=== PATIENT | female | born 1945 | race Caucasian/White ===

== ENCOUNTER 2021-10-10 12:06 | Inpatient (IN) ==
[2021-10-10] MEDS ORDERED: Succinylcholine 200 mg VIAL 20 mg/ml 10 ml VIAL (200 mg) ONE (12:13)
[2021-10-10] MEDS ORDERED: Rocuronium 50 mg VIAL 10 mg/ml 5 ml VIAL (50 mg) ONE (12:13)
[2021-10-10] MEDS ORDERED: Midazolam 10 mg/10 ml VIAL 1 mg/ml 10 ml VIAL (10 mg) ONE (12:18)
[2021-10-10] MEDS ORDERED: Etomidate 40 mg/20 ml (2 MG/ML) 20 ml VIAL (40 mg) ONE (12:18)
[2021-10-10] MEDS ORDERED: Midazolam 2 mg/2 ml VIAL 1 mg/ml 2 ml VIAL (2 mg) IV SLOW PU ONE (12:30)
[2021-10-10 12:36] LABS: Activated Partial Thrombo Time 44.3 seconds (26.0-38.0); INR 1.52 (0.86-1.15)
[2021-10-10 12:44] LABS: PCO2 Arterial 61 mmHg (35-45); PO2 Arterial 90 mmHg (80-100)
[2021-10-10 13:00] LABS: Albumin 2.9 g/dL (3.2-5.2); Albumin/Globulin Ratio 0.5 (1-3); C Reactive Protein 12.16 mg/L (<8.01); Globulin 6.1 g/dL (2-4); Total Bilirubin 1.9 mg/dL (0.2-1.0); eGFR CKD-EPI 78.9 (>60)
[2021-10-10] MEDS ORDERED: Midazolam 50 MG VIAL IV DRIP 50 ML IV SCH ×2 (13:00→19:00)
[2021-10-10 13:02] LABS: Potassium 5.2 mmol/L (3.5-5.0)
[2021-10-10 13:10] LABS: ABS Lymphocytes 0.8 10^3/ul (1.0-4.8); ABS Monocytes 0.3 10^3/ul (0-0.8); ABS Neutrophils 2.8 10^3/ul (1.5-7.7); Eosinophil % 0.3 %; Hematocrit 34 % (35-47); Hemoglobin 11.1 g/dL (12.0-16.0); Lymphocyte % 20.6 %; Mean Corpuscular HGB Conc 33 g/dL (31-36); Mean Corpuscular Hemoglobin 29 pg (27-31); Mean Corpuscular Volume 87 fL (80-97); Mean Platelet Volume 7.5 fL (7.4-10.4); Platelet Count 114 10^3/uL (150-450); Red Cell Distribution Width 21 % (10-15)
[2021-10-10] MEDS ORDERED: levETIRAcetam IV 1,500 MG in NS 0.9% 100 ml BAG 100 ML IVPB ONE (13:14)
[2021-10-10] MEDS ORDERED: levETIRAcetam 500 MG IVPREMIX 500 MG/100 ML BAG IVPB ONE (13:14)
[2021-10-10] MEDS ORDERED: NS 0.9% 100 ml BAG 100 ML ONE (13:25)
[2021-10-10 13:46] LABS: PCO2 Arterial 65 mmHg (35-45); PO2 Arterial 76 mmHg (80-100)
[2021-10-10 14:10] LABS: High Sensitivity Troponin 1 Hr 5 pg/mL (<15)
[2021-10-10 14:13] LABS: Urine Appearance Clear; Urine Bilirubin Negative (Negative); Urine Blood 2+ (Negative); Urine Color Yellow; Urine Glucose Negative (Negative); Urine Ketones Negative (Negative); Urine Nitrite Negative (Negative); Urine Protein Negative (Negative); Urine Specific Gravity 1.015 (1.002-1.030); Urine Urobilinogen Positive (Negative)
[2021-10-10 14:26] LABS: Urine Bacteria Absent (Absent); Urine Red Blood Cell 3+(>10/hpf) (Absent); Urine White Blood Cell Trace(0-5/hpf) (Absent)
[2021-10-10 14:45] LABS: TSH Ultra Thyroid Stim Horm 1.65 mcIU/mL (0.34-5.60)
[2021-10-10 14:52] LABS: Thyroid Peroxidase Antibodies 1.07 IU/mL (<9)
[2021-10-10 15:40] LABS: Erythrocyte Sed Rate 72 mm/Hr (0-29)
[2021-10-10] MEDS: Pantoprazole VIAL 40 MG VIAL IV SCH (15:51)
[2021-10-10] MEDS ORDERED: cefTRIAXone 2 GM ADDV.VIAL 2 GM in NS 0.9% 100 ml BAG 100 ML IV SCH (16:00)
[2021-10-10 16:25] LABS: Body Fluid WBC 725 /mcL
[2021-10-10] MEDS: Dextrose 50% Syringe 50 ml 25 GM/50 ML SYRINGE IV PUSH PRN ×2 (16:39→22:02)
[2021-10-10] MEDS: Artificial Tear OPHTH.OINT 3.5 GM BOTH EYES SCH ×3 (16:40→20:51)
[2021-10-10] MEDS: Lactulose 30 ml UDC PO SCH ×2 (17:27→20:51)
[2021-10-10 17:36] LABS: Body Fluid Appearance Clear; Body Fluid Band 1 %; Body Fluid Color Yellow; Body Fluid Mono 10 %; Body Fluid Other Cells 46; Body Fluid Total Cells Counted 200
[2021-10-10 17:37] LABS: Body Fluid Source Peritonial Fluid
[2021-10-10 19:20] LABS: Osmolality Serum 293 mOsm/kg (275-295)
[2021-10-10] MEDS: Heparin 5000 UNITS/ML 1 mL VIAL SUBCUT SCH (20:51)
[2021-10-10] MEDS: Chlorhexidine MOUTHWASH 0.12% 15 ML UDC TOPICAL SCH ×2 (20:51→22:28)
[2021-10-10] MEDS ORDERED: D5NS 0.9% 1000 ml BAG 1,000 ML IV SCH (23:00)
[2021-10-11] MEDS ORDERED: Lactated Ringers 500 ml BAG 500 ML IV ONE ×2 (01:15→05:28)
[2021-10-11] MEDS: Artificial Tear OPHTH.OINT 3.5 GM BOTH EYES SCH ×6 (02:16→21:48)
[2021-10-11] MEDS: Heparin 5000 UNITS/ML 1 mL VIAL SUBCUT SCH ×3 (04:56→21:47)
[2021-10-11] MEDS: Chlorhexidine MOUTHWASH 0.12% 15 ML UDC TOPICAL SCH ×6 (04:56→23:35)
[2021-10-11 05:02] LABS: ABS Eosinophils 0.1 10^3/ul (0-0.6); ABS Lymphocytes 1.3 10^3/ul (1.0-4.8); ABS Monocytes 1.1 10^3/ul (0-0.8); ABS Neutrophils 9.5 10^3/ul (1.5-7.7); Eosinophil % 0.6 %; Hematocrit 29 % (35-47); Hemoglobin 9.7 g/dL (12.0-16.0); Lymphocyte % 10.4 %; Mean Corpuscular HGB Conc 33 g/dL (31-36); Mean Corpuscular Hemoglobin 29 pg (27-31); Mean Corpuscular Volume 86 fL (80-97); Mean Platelet Volume 7.6 fL (7.4-10.4); Platelet Count 142 10^3/uL (150-450); Red Blood Count 3.38 10^6 /uL (3.70-4.87); Red Cell Distribution Width 21 % (10-15)
[2021-10-11 05:08] LABS: INR 1.76 (0.86-1.15)
[2021-10-11 05:48] LABS: Albumin 2.2 g/dL (3.2-5.2); Albumin/Globulin Ratio 0.4 (1-3); Calcium 7.5 mg/dL (8.6-10.3); Direct Bilirubin 0.6 mg/dL (0.03-0.18); Globulin 4.9 g/dL (2-4); Magnesium 1.3 mg/dL (1.9-2.7); Potassium 4.4 mmol/L (3.5-5.0); Total Bilirubin 1.6 mg/dL (0.2-1.0); Total Protein 7.1 g/dL (6.4-8.9); eGFR CKD-EPI 45.5 (>60)
[2021-10-11] MEDS ORDERED: Magnesium Sulf 4 GM/100 ML IV 4,000 MG/100 ML BAG IVPB ONE (07:30)
[2021-10-11] MEDS ORDERED: Piperacillin/Tazobac ADVAN 3.375 GM in NS 0.9% 100 ml BAG 100 ML IV ONE (07:49)
[2021-10-11] MEDS ORDERED: Zosyn per Pharmacy NOTE FOLLOW UP SCH (08:00)
[2021-10-11] MEDS: Pantoprazole VIAL 40 MG VIAL IV SCH (09:02)
[2021-10-11] MEDS: Lactulose 30 ml UDC PO SCH ×4 (09:02→21:47)
[2021-10-11] MEDS: Albumin Human 25% 25 GM/100 ML BTL IV SCH ×2 (09:53→12:01)
[2021-10-11] MEDS ORDERED: D5NS 0.9% 1000 ml BAG 1,000 ML IV SCH (10:41)
[2021-10-11 10:55] LABS: Urine Osmo 541 mOsm/kg (150-1150)
[2021-10-11 11:29] LABS: PCO2 Arterial 35 mmHg (35-45); PO2 Arterial 76 mmHg (80-100)
[2021-10-11 12:00] LABS: Urine Creatinine Concentration 165.15 mg/dL
[2021-10-11] MEDS ORDERED: Midazolam 10 mg/10 ml VIAL 1 mg/ml 10 ml VIAL (10 mg) ONE (14:37)
[2021-10-11] MEDS ORDERED: fentaNYL 100 mcg/2 ml 50 MCG/ML VIAL ONE (14:37)
[2021-10-11] MEDS: ZOSYN 3.375 GM Q8H per EXTENDED INFUSION IV SCH ×2 (14:53→21:48)
[2021-10-11 15:53] LABS: ABS Eosinophils 0.1 10^3/ul (0-0.6); ABS Lymphocytes 1.3 10^3/ul (1.0-4.8); ABS Monocytes 1.2 10^3/ul (0-0.8); ABS Neutrophils 7.7 10^3/ul (1.5-7.7); Eosinophil % 0.7 %; Hematocrit 26 % (35-47); Hemoglobin 8.6 g/dL (12.0-16.0); Lymphocyte % 12.4 %; Mean Corpuscular HGB Conc 33 g/dL (31-36); Mean Corpuscular Hemoglobin 29 pg (27-31); Mean Corpuscular Volume 87 fL (80-97); Mean Platelet Volume 7.6 fL (7.4-10.4); Platelet Count 120 10^3/uL (150-450); Red Blood Count 2.99 10^6 /uL (3.70-4.87); Red Cell Distribution Width 21 % (10-15); White Blood Count 10.3 10^3/uL (3.5-10.8)
[2021-10-11 16:24] LABS: Calcium 6.9 mg/dL (8.6-10.3); Magnesium 2.3 mg/dL (1.9-2.7); Potassium 4.2 mmol/L (3.5-5.0); eGFR CKD-EPI 44.7 (>60)
[2021-10-11 17:44] LABS: Ferritin 40.8 ng/mL (11-307)
[2021-10-12] MEDS ORDERED: fentaNYL 100 mcg/2 ml 50 MCG/ML VIAL IV SLOW PU ONE (01:30)
[2021-10-12] MEDS ORDERED: fentaNYL 100 mcg/2 ml 50 MCG/ML VIAL ONE (01:34)
[2021-10-12] MEDS: Lactulose 30 ml UDC PO SCH ×6 (02:27→20:26)
[2021-10-12] MEDS: Artificial Tear OPHTH.OINT 3.5 GM BOTH EYES SCH ×6 (02:27→20:42)
[2021-10-12] MEDS ORDERED: Midazolam 2 mg/2 ml VIAL 1 mg/ml 2 ml VIAL (2 mg) IV SLOW PU ONE (02:30)
[2021-10-12] MEDS: Chlorhexidine MOUTHWASH 0.12% 15 ML UDC TOPICAL SCH ×5 (04:04→20:26)
[2021-10-12 04:34] LABS: ABS Eosinophils 0.1 10^3/ul (0-0.6); ABS Monocytes 0.9 10^3/ul (0-0.8); Eosinophil % 0.7 %; Hematocrit 27 % (35-47); Hemoglobin 8.8 g/dL (12.0-16.0); Lymphocyte % 12.3 %; Mean Corpuscular HGB Conc 33 g/dL (31-36); Mean Corpuscular Hemoglobin 29 pg (27-31); Mean Corpuscular Volume 86 fL (80-97); Mean Platelet Volume 7.7 fL (7.4-10.4); Platelet Count 120 10^3/uL (150-450); Red Blood Count 3.07 10^6 /uL (3.70-4.87); Red Cell Distribution Width 20 % (10-15)
[2021-10-12 05:11] LABS: Albumin 2.5 g/dL (3.2-5.2); Albumin/Globulin Ratio 0.6 (1-3); Calcium 7.5 mg/dL (8.6-10.3); Direct Bilirubin 0.8 mg/dL (0.03-0.18); Globulin 4.3 g/dL (2-4); Magnesium 2.4 mg/dL (1.9-2.7); Phosphorus 2.4 mg/dL (2.5-5.0); Potassium 3.9 mmol/L (3.5-5.0); Total Bilirubin 1.8 mg/dL (0.2-1.0); Total Protein 6.8 g/dL (6.4-8.9); eGFR CKD-EPI 45.1 (>60)
[2021-10-12] MEDS: Propofol 10 mg/ml 100 ML BTL 100 ML ONE ×2 (05:44→06:08)
[2021-10-12] MEDS: Heparin 5000 UNITS/ML 1 mL VIAL SUBCUT SCH ×3 (05:48→20:27)
[2021-10-12] MEDS ORDERED: Propofol 10 mg/ml 100 ML BTL 100 ML IV ONE (06:00)
[2021-10-12] MEDS: ZOSYN 3.375 GM Q8H per EXTENDED INFUSION IV SCH ×3 (06:19→20:41)
[2021-10-12] MEDS: Pantoprazole VIAL 40 MG VIAL IV SCH (08:31)
[2021-10-12] MEDS: Saline FLUSH-CENTRAL 10 ML SYRINGE CENT\\PICC SCH ×2 (10:11→20:27)
[2021-10-12 10:26] LABS: INR 1.9 (0.86-1.15)
[2021-10-12 15:01] LABS: Lactate Dehydrogenase, BF 57 U/L
[2021-10-12 15:08] LABS: Activated Partial Thrombo Time 43.6 seconds (26.0-38.0); INR 1.72 (0.86-1.15)
[2021-10-12] MEDS: Propofol 10 mg/ml 100 ML BTL 100 ML IV SCH (15:37)
[2021-10-12 16:01] LABS: Glucose, BF 52 mg/dL
[2021-10-12 16:04] LABS: Total Protein, BF 1.6 g/dL
[2021-10-12 16:05] LABS: Albumin, BF 0.6 g/dL
[2021-10-13] MEDS: Lactulose 30 ml UDC PO SCH ×6 (00:20→20:17)
[2021-10-13] MEDS: Chlorhexidine MOUTHWASH 0.12% 15 ML UDC TOPICAL SCH ×6 (00:20→20:17)
[2021-10-13] MEDS: Propofol 10 mg/ml 100 ML BTL 100 ML IV SCH ×3 (00:20→19:21)
[2021-10-13] MEDS: Artificial Tear OPHTH.OINT 3.5 GM BOTH EYES SCH ×6 (02:16→20:35)
[2021-10-13] MEDS: Heparin 5000 UNITS/ML 1 mL VIAL SUBCUT SCH ×3 (04:22→20:18)
[2021-10-13] MEDS: ZOSYN 3.375 GM Q8H per EXTENDED INFUSION IV SCH (04:23)
[2021-10-13 04:25] LABS: ABS Eosinophils 0.1 10^3/ul (0-0.6); ABS Lymphocytes 1.2 10^3/ul (1.0-4.8); ABS Monocytes 0.6 10^3/ul (0-0.8); ABS Neutrophils 3.2 10^3/ul (1.5-7.7); Eosinophil % 2.9 %; Hematocrit 25 % (35-47); Hemoglobin 8.3 g/dL (12.0-16.0); Lymphocyte % 23.7 %; Mean Corpuscular HGB Conc 33 g/dL (31-36); Mean Corpuscular Hemoglobin 29 pg (27-31); Mean Corpuscular Volume 86 fL (80-97); Nucleated Red Blood Cells % 0.1; Platelet Count 108 10^3/uL (150-450); Red Blood Count 2.92 10^6 /uL (3.70-4.87); Red Cell Distribution Width 20 % (10-15); White Blood Count 5.2 10^3/uL (3.5-10.8)
[2021-10-13 04:34] LABS: INR 1.77 (0.86-1.15)
[2021-10-13 05:15] LABS: ALT 41 U/L (7-52); AST 71 U/L (13-39); Albumin 2.2 g/dL (3.2-5.2); Albumin/Globulin Ratio 0.6 (1-3); Alkaline Phosphatase 78 U/L (35-149); Blood Urea Nitrogen 14 mg/dL (6-24); CO2 Carbon Dioxide 26 mmol/L (22-32); Calcium 7.4 mg/dL (8.6-10.3); Chloride 111 mmol/L (101-111); Glucose 222 mg/dL (70-100); Magnesium 2.2 mg/dL (1.9-2.7); Phosphorus 1.5 mg/dL (2.5-5.0); Potassium 3.4 mmol/L (3.5-5.0); Sodium 137 mmol/L (135-145); Total Protein 6.2 g/dL (6.4-8.9); eGFR CKD-EPI 64.9 (>60)
[2021-10-13] MEDS: Pantoprazole VIAL 40 MG VIAL IV SCH (08:18)
[2021-10-13] MEDS: Saline FLUSH-CENTRAL 10 ML SYRINGE CENT\\PICC SCH ×2 (08:53→20:18)
[2021-10-13] MEDS: KCL premix 10 MEQ/50 ML x 3 RUNS IV SCH ×4 (08:54→13:09)
[2021-10-13] MEDS ORDERED: KCL 20 MEQ/100 ML IVPREMIX 20 MEQ/100 ML BAG IV SCH (09:00)
[2021-10-13] MEDS ORDERED: Potassium Phosphate IV 15 MMOLE in NS 0.9% 250 ml 250 ML IVPB ONE (09:30)
[2021-10-13 11:16] LABS: PCO2 Arterial 36 mmHg (35-45); PO2 Arterial 80 mmHg (80-100)
[2021-10-13] MEDS ORDERED: Dextrose 50% Syringe 50 ml 25 GM/50 ML SYRINGE IV PUSH PRN (12:19)
[2021-10-13] MEDS ORDERED: fentaNYL 100 mcg/2 ml 50 MCG/ML VIAL ONE (12:19)
[2021-10-13] MEDS: fentaNYL 100 mcg/2 ml 50 MCG/ML VIAL IV SLOW PU ONE ×2 (12:30→13:15)
[2021-10-13] MEDS ORDERED: Furosemide 40 mg/4 ml IV VIAL IV SLOW PU ONE (15:02)
[2021-10-13] MEDS: Insulin GLARGINE 100 un/ml 10 ml VIAL SUBCUT SCH (20:18)
[2021-10-13 20:56] LABS: Calcium 7.5 mg/dL (8.6-10.3); Phosphorus 2.1 mg/dL (2.5-5.0); Potassium 3.8 mmol/L (3.5-5.0); eGFR CKD-EPI 62.5 (>60)
[2021-10-14] MEDS: Lactulose 30 ml UDC PO SCH ×6 (00:14→21:32)
[2021-10-14] MEDS: Chlorhexidine MOUTHWASH 0.12% 15 ML UDC TOPICAL SCH ×7 (00:14→23:52)
[2021-10-14] MEDS: Artificial Tear OPHTH.OINT 3.5 GM BOTH EYES SCH ×6 (00:53→21:33)
[2021-10-14] MEDS: Heparin 5000 UNITS/ML 1 mL VIAL SUBCUT SCH ×3 (04:31→21:34)
[2021-10-14 04:37] LABS: ABS Eosinophils 0.1 10^3/ul (0-0.6); ABS Lymphocytes 1.4 10^3/ul (1.0-4.8); ABS Monocytes 0.6 10^3/ul (0-0.8); ABS Neutrophils 2.3 10^3/ul (1.5-7.7); Eosinophil % 3.3 %; Hematocrit 27 % (35-47); Hemoglobin 8.9 g/dL (12.0-16.0); Lymphocyte % 31.9 %; Mean Corpuscular HGB Conc 33 g/dL (31-36); Mean Corpuscular Hemoglobin 29 pg (27-31); Mean Corpuscular Volume 87 fL (80-97); Mean Platelet Volume 7.5 fL (7.4-10.4); Nucleated Red Blood Cells % 0.1; Platelet Count 126 10^3/uL (150-450); Red Blood Count 3.08 10^6 /uL (3.70-4.87); Red Cell Distribution Width 20 % (10-15); White Blood Count 4.5 10^3/uL (3.5-10.8)
[2021-10-14 04:43] LABS: INR 1.66 (0.86-1.15)
[2021-10-14 05:06] LABS: Albumin 2.2 g/dL (3.2-5.2); Albumin/Globulin Ratio 0.5 (1-3); Calcium 7.8 mg/dL (8.6-10.3); Globulin 4.2 g/dL (2-4); Magnesium 1.9 mg/dL (1.9-2.7); Phosphorus 2.3 mg/dL (2.5-5.0); Potassium 3.7 mmol/L (3.5-5.0); Total Bilirubin 1.2 mg/dL (0.2-1.0); Total Protein 6.4 g/dL (6.4-8.9); eGFR CKD-EPI 64.9 (>60)
[2021-10-14] MEDS: Propofol 10 mg/ml 100 ML BTL 100 ML IV SCH ×3 (06:18→23:18)
[2021-10-14] MEDS ORDERED: Magnesium Sulfate IV 1GM/100ML 1 GM/100 ML BAG IV ONE (07:08)
[2021-10-14] MEDS: Pantoprazole VIAL 40 MG VIAL IV SCH (07:54)
[2021-10-14] MEDS: KCL 20 MEQ/100 ML IVPREMIX 20 MEQ/100 ML BAG IV SCH ×2 (07:59→11:09)
[2021-10-14] MEDS: Saline FLUSH-CENTRAL 10 ML SYRINGE CENT\\PICC SCH ×2 (08:03→21:34)
[2021-10-14] MEDS ORDERED: methylPREDNISolone SOD SUCC 1,000 MG in NS 0.9% 1000 ml BAG 1,000 ML IVPB SCH (17:00)
[2021-10-14] MEDS ORDERED: METHYLPREDNISOLONE IV SCH (18:00)
[2021-10-14] MEDS ORDERED: NS 0.9% IV SCH (18:00)
[2021-10-14] MEDS ORDERED: methylPREDNISolone SOD SUCC 1,000 MG in NS 0.9% 250 ml 250 ML IVPB ONE (19:00)
[2021-10-14] MEDS: Insulin GLARGINE 100 un/ml 10 ml VIAL SUBCUT SCH (21:32)
[2021-10-15] MEDS ORDERED: Furosemide 40 mg/4 ml IV VIAL IV ONE (00:05)
[2021-10-15] MEDS ORDERED: Insulin GLARGINE 100 un/ml 10 ml VIAL SUBCUT SCH ×2 (01:00→21:00)
[2021-10-15] MEDS: Lactulose 30 ml UDC PO SCH ×6 (02:05→21:15)
[2021-10-15] MEDS: Artificial Tear OPHTH.OINT 3.5 GM BOTH EYES SCH ×6 (02:06→22:58)
[2021-10-15] MEDS: Chlorhexidine MOUTHWASH 0.12% 15 ML UDC TOPICAL SCH ×5 (04:39→21:15)
[2021-10-15 05:11] LABS: ABS Lymphocytes 0.5 10^3/ul (1.0-4.8); ABS Neutrophils 2.2 10^3/ul (1.5-7.7); Eosinophil % 0.1 %; Hematocrit 28 % (35-47); Hemoglobin 9.3 g/dL (12.0-16.0); Lymphocyte % 18.5 %; Mean Corpuscular HGB Conc 33 g/dL (31-36); Mean Corpuscular Hemoglobin 29 pg (27-31); Mean Corpuscular Volume 88 fL (80-97); Mean Platelet Volume 7.4 fL (7.4-10.4); Nucleated Red Blood Cells % 0.1; Platelet Count 104 10^3/uL (150-450); Red Blood Count 3.19 10^6 /uL (3.70-4.87); Red Cell Distribution Width 20 % (10-15); White Blood Count 2.7 10^3/uL (3.5-10.8)
[2021-10-15 05:19] LABS: INR 1.58 (0.86-1.15)
[2021-10-15 05:51] LABS: Albumin 2.3 g/dL (3.2-5.2); Albumin/Globulin Ratio 0.5 (1-3); Calcium 7.8 mg/dL (8.6-10.3); Globulin 4.8 g/dL (2-4); Phosphorus 3.3 mg/dL (2.5-5.0); Potassium 4.9 mmol/L (3.5-5.0); Total Bilirubin 1.3 mg/dL (0.2-1.0); Total Protein 7.1 g/dL (6.4-8.9); eGFR CKD-EPI 60.2 (>60)
[2021-10-15] MEDS: Propofol 10 mg/ml 100 ML BTL 100 ML IV SCH ×2 (07:12→14:23)
[2021-10-15] MEDS: methylPREDNISolone SOD SUCC 1,000 MG in NS 0.9% 250 ml 250 ML IVPB SCH (07:59)
[2021-10-15] MEDS: Pantoprazole VIAL 40 MG VIAL IV SCH (08:01)
[2021-10-15] MEDS: Saline FLUSH-CENTRAL 10 ML SYRINGE CENT\\PICC SCH ×2 (08:02→21:18)
[2021-10-15] MEDS ORDERED: Furosemide 20 mg/2 ml IV VIAL IV SLOW PU ONE (09:20)
[2021-10-15 12:39] LABS: Glucose Confirmatory 409 mg/dL (70-100)
[2021-10-15 12:54] LABS: C-ANCA Negative (Negative); P-ANCA Positive (Negative)
[2021-10-15] MEDS ORDERED: Phytonadione IV (Adult) 5 MG in NS 0.9% 50 ML 50 ML IV ONE (16:15)
[2021-10-15 16:32] LABS: Liver/Kidney Microsomes Ab <5.0 U
[2021-10-15 16:33] LABS: Liver/Kidney Microsomes Ab <5.0 U
[2021-10-15 17:07] LABS: Calcium 6.8 mg/dL (8.6-10.3); Magnesium 1.8 mg/dL (1.9-2.7); Potassium 4.3 mmol/L (3.5-5.0); eGFR CKD-EPI 53.1 (>60)
[2021-10-15 17:17] LABS: Albumin 3.2 mg/dL; Albumin/Globulin Ratio 0.19; Gamma Globulin 6.2 mg/dL; Protein,Total, Random Urine 20 mg/dL
[2021-10-15] MEDS ORDERED: Heparin 5000 UNITS/ML 1 mL VIAL SUBCUT ONE (18:05)
[2021-10-15 19:50] LABS: Albumin 2.4 g/dL (3.4-4.7); Gamma Globulin 4.3 g/dL (0.6-1.6); Total Protein(PEP) 8.2 g/dL (6.3 - 7.9)
[2021-10-16] MEDS: Chlorhexidine MOUTHWASH 0.12% 15 ML UDC TOPICAL SCH ×7 (00:49→23:42)
[2021-10-16] MEDS: Propofol 10 mg/ml 100 ML BTL 100 ML IV SCH ×4 (02:15→20:07)
[2021-10-16] MEDS: Lactulose 30 ml UDC PO SCH ×6 (03:00→22:15)
[2021-10-16] MEDS: Artificial Tear OPHTH.OINT 3.5 GM BOTH EYES SCH ×6 (03:00→22:02)
[2021-10-16 04:19] LABS: Hepatitis B Surface Antigen Nonreactive (Nonreactive)
[2021-10-16 04:25] LABS: Hepatitis A Ab IgM Negative (Negative)
[2021-10-16 04:26] LABS: Hepatitis B Core IgM Nonreactive (Nonreactive)
[2021-10-16 04:37] LABS: Hepatitis C Antibody Negative (Negative)
[2021-10-16 06:36] LABS: Hematocrit 27 % (35-47); Mean Corpuscular HGB Conc 33 g/dL (31-36); Mean Corpuscular Hemoglobin 29 pg (27-31); Mean Corpuscular Volume 88 fL (80-97); Mean Platelet Volume 7.8 fL (7.4-10.4); Platelet Count 112 10^3/uL (150-450); Red Blood Count 3.11 10^6 /uL (3.70-4.87); Red Cell Distribution Width 20 % (10-15)
[2021-10-16 06:43] LABS: INR 1.56 (0.86-1.15)
[2021-10-16 06:57] LABS: ABS Lymphocytes 0.7 10^3/ul (1.0-4.8); ABS Monocytes 0.7 10^3/ul (0-0.8); ABS Neutrophils 6.6 10^3/ul (1.5-7.7); Lymphocyte % 8.9 %
[2021-10-16 07:03] LABS: Blood Urea Nitrogen 35 mg/dL (6-24); CO2 Carbon Dioxide 26 mmol/L (22-32); Calcium 8.2 mg/dL (8.6-10.3); Glucose 274 mg/dL (70-100); Magnesium 2.3 mg/dL (1.9-2.7); Phosphorus 4.5 mg/dL (2.5-5.0); Potassium 4.7 mmol/L (3.5-5.0); Sodium 143 mmol/L (135-145); eGFR CKD-EPI 42.6 (>60)
[2021-10-16 07:09] LABS: Chloride 117 mmol/L (101-111)
[2021-10-16] MEDS ORDERED: Phytonadione IV (Adult) 5 MG in NS 0.9% 50 ML 50 ML IV ONE (08:11)
[2021-10-16] MEDS: methylPREDNISolone SOD SUCC 1,000 MG in NS 0.9% 250 ml 250 ML IVPB SCH (08:35)
[2021-10-16] MEDS: Pantoprazole VIAL 40 MG VIAL IV SCH (08:36)
[2021-10-16] MEDS: Saline FLUSH-CENTRAL 10 ML SYRINGE CENT\\PICC SCH ×2 (08:37→22:03)
[2021-10-16] MEDS ORDERED: Insulin GLARGINE 100 un/ml 10 ml VIAL SUBCUT ONE (09:22)
[2021-10-16] MEDS ORDERED: Furosemide 20 mg/2 ml IV VIAL IV SLOW PU ONE (10:55)
[2021-10-16] MEDS ORDERED: Gadoteridol (CONTRAST) 279.3 MG/ML 10 ML IV ONE (13:35)
[2021-10-16 16:29] LABS: Lamotrigine 4.9 mcg/mL (2.5 - 15.0)
[2021-10-16 16:46] LABS: Urine Appearance Cloudy; Urine Bilirubin Negative (Negative); Urine Blood 2+ (Negative); Urine Color Yellow; Urine Glucose Negative (Negative); Urine Ketones Negative (Negative); Urine Nitrite Negative (Negative); Urine Protein Negative (Negative); Urine Urobilinogen Negative (Negative)
[2021-10-16 16:50] LABS: Urine Bacteria Absent (Absent); Urine Red Blood Cell 3+(>10/hpf) (Absent); Urine Squamous Epithelial Cell Present (Absent); Urine White Blood Cell Trace(0-5/hpf) (Absent)
[2021-10-16 17:04] LABS: INR 1.6 (0.86-1.15)
[2021-10-16] MEDS ORDERED: Insulin GLARGINE 100 un/ml 10 ml VIAL SUBCUT SCH ×2 (21:00)
[2021-10-17] MEDS: Artificial Tear OPHTH.OINT 3.5 GM BOTH EYES SCH ×6 (02:15→22:37)
[2021-10-17] MEDS: Lactulose 30 ml UDC PO SCH ×6 (02:15→22:36)
[2021-10-17] MEDS: Chlorhexidine MOUTHWASH 0.12% 15 ML UDC TOPICAL SCH ×5 (03:45→22:37)
[2021-10-17 04:10] LABS: ABS Lymphocytes 0.4 10^3/ul (1.0-4.8); ABS Monocytes 0.3 10^3/ul (0-0.8); ABS Neutrophils 4.6 10^3/ul (1.5-7.7); Hematocrit 25 % (35-47); Hemoglobin 8.3 g/dL (12.0-16.0); Lymphocyte % 8.2 %; Mean Corpuscular HGB Conc 33 g/dL (31-36); Mean Corpuscular Hemoglobin 30 pg (27-31); Mean Corpuscular Volume 89 fL (80-97); Mean Platelet Volume 8.4 fL (7.4-10.4); Nucleated Red Blood Cells % 0.1; Platelet Count 82 10^3/uL (150-450); Red Blood Count 2.81 10^6 /uL (3.70-4.87); Red Cell Distribution Width 21 % (10-15); White Blood Count 5.4 10^3/uL (3.5-10.8)
[2021-10-17 04:11] LABS: INR 1.61 (0.86-1.15)
[2021-10-17 04:28] LABS: Albumin 2.5 g/dL (3.2-5.2); Albumin/Globulin Ratio 0.6 (1-3); Calcium 8.6 mg/dL (8.6-10.3); Globulin 4.1 g/dL (2-4); Magnesium 2.5 mg/dL (1.9-2.7); Phosphorus 4.7 mg/dL (2.5-5.0); Potassium 4.5 mmol/L (3.5-5.0); Total Bilirubin 0.9 mg/dL (0.2-1.0); Total Protein 6.6 g/dL (6.4-8.9); eGFR CKD-EPI 41.9 (>60)
[2021-10-17] MEDS: Propofol 10 mg/ml 100 ML BTL 100 ML IV SCH (06:51)
[2021-10-17] MEDS ORDERED: Insulin NPH 100 units/ml SUBCUT ONE (08:17)
[2021-10-17] MEDS ORDERED: methylPREDNISolone SOD 125 mg 1,000 MG in NS 0.9% 100 ml BAG 100 ML IV SCH (09:00)
[2021-10-17] MEDS: methylPREDNISolone SOD SUCC 1,000 MG in NS 0.9% 250 ml 250 ML IVPB SCH (09:16)
[2021-10-17] MEDS: Pantoprazole VIAL 40 MG VIAL IV SCH (09:29)
[2021-10-17] MEDS: Saline FLUSH-CENTRAL 10 ML SYRINGE CENT\\PICC SCH ×2 (09:29→22:37)
[2021-10-17] MEDS: Heparin 5000 UNITS/ML 1 mL VIAL SUBCUT SCH ×2 (11:53→22:36)
[2021-10-17 14:14] LABS: JO-1 Antibody <0.2 U; Scleroderma Ab <0.2 U
[2021-10-17] MEDS ORDERED: Acetaminophen IV 1 GM/100ML 100 ML IV PRN (15:29)
[2021-10-17 18:48] LABS: JO-1 Antibody <0.2 U; RNP Antibody, IgG <0.2 U; SS-A/Ro Antibody <0.2 U; SS-B/La Antibody <0.2 U; Sm (Smith) IgG Antibody <0.2 U
[2021-10-17] MEDS: Insulin GLARGINE 100 un/ml 10 ml VIAL SUBCUT SCH (22:36)
[2021-10-18] MEDS: Chlorhexidine MOUTHWASH 0.12% 15 ML UDC TOPICAL SCH ×7 (01:04→23:35)
[2021-10-18] MEDS: Lactulose 30 ml UDC PO SCH ×6 (01:04→21:39)
[2021-10-18] MEDS: Artificial Tear OPHTH.OINT 3.5 GM BOTH EYES SCH ×6 (01:05→23:35)
[2021-10-18] MEDS: Metoprolol Tartrate 5 mg VIAL 5 ml VIAL (1 mg/ml) IV PRN ×2 (04:05→16:00)
[2021-10-18 04:29] LABS: ABS Lymphocytes 0.5 10^3/ul (1.0-4.8); ABS Monocytes 0.6 10^3/ul (0-0.8); ABS Neutrophils 5.4 10^3/ul (1.5-7.7); Hematocrit 28 % (35-47); Hemoglobin 9.1 g/dL (12.0-16.0); Mean Corpuscular HGB Conc 32 g/dL (31-36); Mean Corpuscular Hemoglobin 29 pg (27-31); Mean Corpuscular Volume 89 fL (80-97); Mean Platelet Volume 8.2 fL (7.4-10.4); Nucleated Red Blood Cells % 0.1; Platelet Count 81 10^3/uL (150-450); Red Blood Count 3.15 10^6 /uL (3.70-4.87); Red Cell Distribution Width 21 % (10-15); White Blood Count 6.5 10^3/uL (3.5-10.8)
[2021-10-18 04:41] LABS: INR 1.76 (0.86-1.15)
[2021-10-18 04:56] LABS: Albumin 2.7 g/dL (3.2-5.2); Albumin/Globulin Ratio 0.6 (1-3); Calcium 9.2 mg/dL (8.6-10.3); Globulin 4.7 g/dL (2-4); Magnesium 2.9 mg/dL (1.9-2.7); Phosphorus 4.1 mg/dL (2.5-5.0); Potassium 4.4 mmol/L (3.5-5.0); Total Bilirubin 1.4 mg/dL (0.2-1.0); Total Protein 7.4 g/dL (6.4-8.9); eGFR CKD-EPI 36.6 (>60)
[2021-10-18] MEDS: Heparin 5000 UNITS/ML 1 mL VIAL SUBCUT SCH ×3 (05:49→21:39)
[2021-10-18] MEDS ORDERED: Insulin NPH 100 units/ml SUBCUT ONE (07:24)
[2021-10-18] MEDS: Pantoprazole VIAL 40 MG VIAL IV SCH (10:09)
[2021-10-18] MEDS: methylPREDNISolone SOD SUCC 1,000 MG in NS 0.9% 250 ml 250 ML IVPB SCH (10:10)
[2021-10-18] MEDS: Saline FLUSH-CENTRAL 10 ML SYRINGE CENT\\PICC SCH ×2 (10:10→21:46)
[2021-10-18 13:39] LABS: Cryoglobulin Negative %ppt (Negative)
[2021-10-18 14:13] LABS: TB2 Ag minus Nil Result -0.01 IU/mL
[2021-10-18 14:18] LABS: QuantiferonTb Gold Plus Result Indeterminate (Negative)
[2021-10-18] MEDS: Insulin GLARGINE 100 un/ml 10 ml VIAL SUBCUT SCH (21:40)
[2021-10-19] MEDS: Lactulose 30 ml UDC PO SCH ×3 (02:50→10:35)
[2021-10-19] MEDS: Artificial Tear OPHTH.OINT 3.5 GM BOTH EYES SCH ×4 (03:02→15:02)
[2021-10-19] MEDS: Chlorhexidine MOUTHWASH 0.12% 15 ML UDC TOPICAL SCH ×4 (04:56→16:40)
[2021-10-19] MEDS: Heparin 5000 UNITS/ML 1 mL VIAL SUBCUT SCH ×3 (04:57→21:14)
[2021-10-19 05:10] LABS: Hematocrit 28 % (35-47); Hemoglobin 9.1 g/dL (12.0-16.0); Mean Corpuscular HGB Conc 33 g/dL (31-36); Mean Corpuscular Hemoglobin 29 pg (27-31); Mean Corpuscular Volume 90 fL (80-97); Mean Platelet Volume 8.6 fL (7.4-10.4); Platelet Count 62 10^3/uL (150-450); Red Blood Count 3.11 10^6 /uL (3.70-4.87); Red Cell Distribution Width 21 % (10-15)
[2021-10-19 05:17] LABS: INR 1.96 (0.86-1.15)
[2021-10-19 05:39] LABS: Magnesium 2.8 mg/dL (1.9-2.7); Phosphorus 2.9 mg/dL (2.5-5.0)
[2021-10-19] MEDS ORDERED: methylPREDNISolone SOD SUCC 40 mg/ml 1 ml VIAL IV SCH (06:00)
[2021-10-19 07:35] LABS: Anisocytosis 2+; Hypochromasia 1+; Microcytosis 1+
[2021-10-19 07:37] LABS: ABS Lymphocytes 0.5 10^3/ul (1.0-4.8); ABS Monocytes 0.4 10^3/ul (0-0.8); Lymphocyte % 10.8 %; Nucleated Red Blood Cells % 0.2
[2021-10-19] MEDS: Pantoprazole VIAL 40 MG VIAL IV SCH ×2 (08:36→21:14)
[2021-10-19] MEDS: Saline FLUSH-CENTRAL 10 ML SYRINGE CENT\\PICC SCH ×2 (08:36→21:26)
[2021-10-19] MEDS ORDERED: Pantoprazole VIAL 40 MG VIAL IV SCH (09:00)
[2021-10-19 09:18] LABS: Albumin 2.6 g/dL (3.2-5.2); Albumin/Globulin Ratio 0.6 (1-3); Calcium 9.2 mg/dL (8.6-10.3); Globulin 4.7 g/dL (2-4); Total Bilirubin 1.8 mg/dL (0.2-1.0); Total Protein 7.3 g/dL (6.4-8.9); eGFR CKD-EPI 56.8 (>60)
[2021-10-19 09:36] LABS: PCO2 Arterial 42 mmHg (35-45); PO2 Arterial 95 mmHg (80-100)
[2021-10-19] MEDS: Insulin GLARGINE 100 un/ml 10 ml VIAL SUBCUT SCH (21:14)
[2021-10-20] MEDS: Metoprolol Tartrate 5 mg VIAL 5 ml VIAL (1 mg/ml) IV PRN (04:58)
[2021-10-20] MEDS: Heparin 5000 UNITS/ML 1 mL VIAL SUBCUT SCH ×3 (05:33→22:12)
[2021-10-20 05:35] LABS: ABS Lymphocytes 0.9 10^3/ul (1.0-4.8); ABS Monocytes 0.8 10^3/ul (0-0.8); ABS Neutrophils 4.6 10^3/ul (1.5-7.7); Hematocrit 28 % (35-47); Hemoglobin 9.1 g/dL (12.0-16.0); Lymphocyte % 13.9 %; Mean Corpuscular HGB Conc 33 g/dL (31-36); Mean Corpuscular Hemoglobin 29 pg (27-31); Mean Corpuscular Volume 90 fL (80-97); Mean Platelet Volume 8.7 fL (7.4-10.4); Nucleated Red Blood Cells % 0.2; Platelet Count 67 10^3/uL (150-450); Red Blood Count 3.12 10^6 /uL (3.70-4.87); Red Cell Distribution Width 21 % (10-15); White Blood Count 6.3 10^3/uL (3.5-10.8)
[2021-10-20 05:38] LABS: INR 2.04 (0.86-1.15)
[2021-10-20 06:27] LABS: Albumin 2.5 g/dL (3.2-5.2); Albumin/Globulin Ratio 0.6 (1-3); Globulin 4.3 g/dL (2-4); Magnesium 2.6 mg/dL (1.9-2.7); Potassium 4.1 mmol/L (3.5-5.0); Total Bilirubin 1.7 mg/dL (0.2-1.0); Total Protein 6.8 g/dL (6.4-8.9); eGFR CKD-EPI 55.5 (>60)
[2021-10-20] MEDS ORDERED: methylPREDNISolone SOD SUCC 40 mg/ml 1 ml VIAL IV SCH ×2 (09:00)
[2021-10-20] MEDS: Saline FLUSH-CENTRAL 10 ML SYRINGE CENT\\PICC SCH ×2 (10:33→22:12)
[2021-10-20] MEDS: Insulin GLARGINE 100 un/ml 10 ml VIAL SUBCUT SCH (22:10)
[2021-10-20] MEDS: Lactulose 30 ml UDC NG TUBE SCH (22:12)
[2021-10-21 04:43] LABS: ABS Lymphocytes 1.2 10^3/ul (1.0-4.8); ABS Monocytes 0.9 10^3/ul (0-0.8); ABS Neutrophils 6.1 10^3/ul (1.5-7.7); Eosinophil % 0.3 %; Hematocrit 29 % (35-47); Hemoglobin 9.3 g/dL (12.0-16.0); Lymphocyte % 14.4 %; Mean Corpuscular HGB Conc 32 g/dL (31-36); Mean Corpuscular Hemoglobin 30 pg (27-31); Mean Corpuscular Volume 92 fL (80-97); Mean Platelet Volume 9.1 fL (7.4-10.4); Nucleated Red Blood Cells % 0.2; Platelet Count 64 10^3/uL (150-450); Red Blood Count 3.12 10^6 /uL (3.70-4.87); Red Cell Distribution Width 21 % (10-15); White Blood Count 8.2 10^3/uL (3.5-10.8)
[2021-10-21 05:09] LABS: Calcium 8.9 mg/dL (8.6-10.3); Potassium 4.6 mmol/L (3.5-5.0); eGFR CKD-EPI 59.5 (>60)
[2021-10-21] MEDS: Heparin 5000 UNITS/ML 1 mL VIAL SUBCUT SCH ×3 (05:44→21:07)
[2021-10-21 07:35] LABS: Magnesium 2.6 mg/dL (1.9-2.7)
[2021-10-21] MEDS: Lactulose 30 ml UDC NG TUBE SCH ×2 (10:16→21:02)
[2021-10-21] MEDS: Saline FLUSH-CENTRAL 10 ML SYRINGE CENT\\PICC SCH ×2 (10:35→21:08)
[2021-10-21] MEDS: Pantoprazole VIAL 40 MG VIAL IV SCH (20:35)
[2021-10-21] MEDS: Insulin GLARGINE 100 un/ml 10 ml VIAL SUBCUT SCH (21:07)
[2021-10-22 03:24] LABS: ABS Eosinophils 0.2 10^3/ul (0-0.6); ABS Lymphocytes 1.3 10^3/ul (1.0-4.8); ABS Neutrophils 8.3 10^3/ul (1.5-7.7); Eosinophil % 1.7 %; Hematocrit 29 % (35-47); Hemoglobin 9.5 g/dL (12.0-16.0); Lymphocyte % 12.2 %; Mean Corpuscular HGB Conc 32 g/dL (31-36); Mean Corpuscular Hemoglobin 30 pg (27-31); Mean Corpuscular Volume 93 fL (80-97); Mean Platelet Volume 9.5 fL (7.4-10.4); Nucleated Red Blood Cells % 0.1; Platelet Count 66 10^3/uL (150-450); Red Blood Count 3.18 10^6 /uL (3.70-4.87); Red Cell Distribution Width 21 % (10-15); White Blood Count 10.8 10^3/uL (3.5-10.8)
[2021-10-22 03:27] LABS: INR 1.75 (0.86-1.15)
[2021-10-22 03:48] LABS: ALT 47 U/L (7-52); AST 59 U/L (13-39); Albumin 2.5 g/dL (3.2-5.2); Albumin/Globulin Ratio 0.6 (1-3); Alkaline Phosphatase 79 U/L (35-149); Blood Urea Nitrogen 55 mg/dL (6-24); CO2 Carbon Dioxide 29 mmol/L (22-32); Calcium 8.8 mg/dL (8.6-10.3); Glucose 195 mg/dL (70-100); Magnesium 2.5 mg/dL (1.9-2.7); Sodium 143 mmol/L (135-145); Total Protein 6.5 g/dL (6.4-8.9); eGFR CKD-EPI 64.9 (>60)
[2021-10-22 03:51] LABS: Chloride 114 mmol/L (101-111)
[2021-10-22] MEDS: Heparin 5000 UNITS/ML 1 mL VIAL SUBCUT SCH ×3 (06:54→22:32)
[2021-10-22] MEDS: Lactulose 30 ml UDC NG TUBE SCH ×2 (09:31→21:08)
[2021-10-22] MEDS: Saline FLUSH-CENTRAL 10 ML SYRINGE CENT\\PICC SCH ×2 (09:31→21:07)
[2021-10-22 09:52] LABS: Case Number CR-22-21023
[2021-10-22 13:57] LABS: TB1 Ag minus Nil Result 0.01 IU/mL; TB2 Ag minus Nil Result 0.01 IU/mL
[2021-10-22 14:02] LABS: QuantiferonTb Gold Plus Result Indeterminate (Negative)
[2021-10-22] MEDS ORDERED: Furosemide 40 mg/4 ml IV VIAL IV SLOW PU ONE (18:56)
[2021-10-22] MEDS: Insulin GLARGINE 100 un/ml 10 ml VIAL SUBCUT SCH (22:31)
[2021-10-23 05:32] LABS: ABS Eosinophils 0.3 10^3/ul (0-0.6); ABS Lymphocytes 1.4 10^3/ul (1.0-4.8); ABS Monocytes 1.1 10^3/ul (0-0.8); ABS Neutrophils 10.1 10^3/ul (1.5-7.7); Eosinophil % 2.6 %; Hematocrit 28 % (35-47); Hemoglobin 9.2 g/dL (12.0-16.0); Lymphocyte % 10.9 %; Mean Corpuscular HGB Conc 34 g/dL (31-36); Mean Corpuscular Hemoglobin 31 pg (27-31); Mean Corpuscular Volume 91 fL (80-97); Mean Platelet Volume 9.4 fL (7.4-10.4); Nucleated Red Blood Cells % 0.1; Platelet Count 67 10^3/uL (150-450); Red Blood Count 3.02 10^6 /uL (3.70-4.87); Red Cell Distribution Width 21 % (10-15)
[2021-10-23 06:19] LABS: Calcium 8.9 mg/dL (8.6-10.3); Magnesium 2.2 mg/dL (1.9-2.7); Potassium 4.7 mmol/L (3.5-5.0); eGFR CKD-EPI 60.2 (>60)
[2021-10-23] MEDS: Heparin 5000 UNITS/ML 1 mL VIAL SUBCUT SCH ×2 (07:38→15:27)
[2021-10-23] MEDS: Lactulose 30 ml UDC NG TUBE SCH (10:16)
[2021-10-23] MEDS: Saline FLUSH-CENTRAL 10 ML SYRINGE CENT\\PICC SCH (11:02)
[2021-10-23] MEDS: cefTRIAXone 2 gm/50 mL D5W 2 GM/50 ML BAG IV SCH (15:30)
[2021-10-23 15:53] LABS: Body Fluid WBC 250 /mcL
[2021-10-23 18:30] LABS: Body Fluid WBC 214 /mcL
[2021-10-23 18:59] LABS: Body Fluid Source Pleural Fluid
[2021-10-23 19:00] LABS: Body Fluid Appearance Cloudy; Body Fluid Color Yellow
[2021-10-23 20:00] LABS: Body Fluid Appearance Clear; Body Fluid Color Yellow; Body Fluid Source Peritonial Fluid
[2021-10-23 20:07] LABS: Body Fluid Mono 3 %; Body Fluid Other Cells 61; Body Fluid Total Cells Counted 200
[2021-10-23 20:17] LABS: Body Fluid Mono 6 %; Body Fluid Other Cells 3; Body Fluid Total Cells Counted 200
[2021-10-24] MEDS: Lactulose 30 ml UDC NG TUBE SCH ×3 (00:18→21:50)
[2021-10-24] MEDS: Heparin 5000 UNITS/ML 1 mL VIAL SUBCUT SCH ×4 (00:19→21:50)
[2021-10-24] MEDS: Saline FLUSH-CENTRAL 10 ML SYRINGE CENT\\PICC SCH ×3 (00:19→22:03)
[2021-10-24] MEDS: Insulin GLARGINE 100 un/ml 10 ml VIAL SUBCUT SCH ×2 (00:30→21:51)
[2021-10-24 06:02] LABS: ABS Eosinophils 0.2 10^3/ul (0-0.6); ABS Lymphocytes 1.3 10^3/ul (1.0-4.8); ABS Monocytes 1.5 10^3/ul (0-0.8); ABS Neutrophils 10.8 10^3/ul (1.5-7.7); Eosinophil % 1.8 %; Hematocrit 29 % (35-47); Hemoglobin 9.4 g/dL (12.0-16.0); Lymphocyte % 9.2 %; Mean Corpuscular HGB Conc 32 g/dL (31-36); Mean Corpuscular Hemoglobin 30 pg (27-31); Mean Corpuscular Volume 92 fL (80-97); Mean Platelet Volume 9.9 fL (7.4-10.4); Nucleated Red Blood Cells % 0.1; Platelet Count 73 10^3/uL (150-450); Red Blood Count 3.18 10^6 /uL (3.70-4.87); Red Cell Distribution Width 21 % (10-15); White Blood Count 13.9 10^3/uL (3.5-10.8)
[2021-10-24 06:15] LABS: Calcium 8.9 mg/dL (8.6-10.3); Magnesium 2.1 mg/dL (1.9-2.7); Phosphorus 2.8 mg/dL (2.5-5.0); eGFR CKD-EPI 63.3 (>60)
[2021-10-24] MEDS ORDERED: Lactulose 30 ml UDC NG TUBE SCH (09:58)
[2021-10-24] MEDS ORDERED: Insulin GLARGINE 100 un/ml 10 ml VIAL SUBCUT SCH (10:00)
[2021-10-24] MEDS: Lansoprazole SUSP ORALSYR 3 MG/ML PO SCH (10:20)
[2021-10-24] MEDS: Furosemide 20 mg/2 ml IV VIAL IV SLOW PU SCH (11:26)
[2021-10-24 13:04] LABS: Urine Appearance Cloudy; Urine Bilirubin Negative (Negative); Urine Blood Negative (Negative); Urine Color Amber; Urine Glucose Negative (Negative); Urine Ketones Negative (Negative); Urine Nitrite Negative (Negative); Urine Protein Negative (Negative); Urine Specific Gravity 1.029 (1.002-1.030); Urine Urobilinogen Negative (Negative)
[2021-10-24] MEDS: cefTRIAXone 2 gm/50 mL D5W 2 GM/50 ML BAG IV SCH (14:06)
[2021-10-24] MEDS ORDERED: Albumin Human 25% 25 GM/100 ML BTL IV ONE ×2 (20:55→20:58)
[2021-10-25] MEDS: Heparin 5000 UNITS/ML 1 mL VIAL SUBCUT SCH ×3 (06:52→20:32)
[2021-10-25] MEDS: Furosemide 20 mg/2 ml IV VIAL IV SLOW PU SCH (08:18)
[2021-10-25] MEDS: Saline FLUSH-CENTRAL 10 ML SYRINGE CENT\\PICC SCH ×2 (08:20→20:39)
[2021-10-25] MEDS ORDERED: Furosemide 20 mg/2 ml IV VIAL IV SCH (09:00)
[2021-10-25] MEDS: Insulin GLARGINE 100 un/ml 10 ml VIAL SUBCUT SCH ×2 (09:54→21:36)
[2021-10-25] MEDS: Lansoprazole SUSP ORALSYR 3 MG/ML PO SCH (09:55)
[2021-10-25] MEDS: Lactulose 30 ml UDC NG TUBE SCH ×3 (11:09→19:24)
[2021-10-25] MEDS: cefTRIAXone 2 gm/50 mL D5W 2 GM/50 ML BAG IV SCH (13:36)
[2021-10-25 15:22] LABS: Albumin, BF 0.3 g/dL; Fluid Type, Albumin PERITONEAL; Lactate Dehydrogenase, BF 43 U/L
[2021-10-25 15:24] LABS: Lactate Dehydrogenase, BF 64 U/L
[2021-10-25 15:36] LABS: Fluid Type, Protein, Total PERITONEAL; Total Protein, BF 0.7 g/dL
[2021-10-25 16:50] LABS: ABS Eosinophils 0.1 10^3/ul (0-0.6); ABS Lymphocytes 0.6 10^3/ul (1.0-4.8); ABS Monocytes 0.4 10^3/ul (0-0.8); ABS Neutrophils 8.2 10^3/ul (1.5-7.7); Eosinophil % 0.6 %; Hematocrit 30 % (35-47); Hemoglobin 9.8 g/dL (12.0-16.0); Lymphocyte % 6.8 %; Mean Corpuscular HGB Conc 33 g/dL (31-36); Mean Corpuscular Hemoglobin 30 pg (27-31); Mean Corpuscular Volume 93 fL (80-97); Mean Platelet Volume 10.3 fL (7.4-10.4); Nucleated Red Blood Cells % 0.1; Platelet Count 78 10^3/uL (150-450); Red Blood Count 3.23 10^6 /uL (3.70-4.87); Red Cell Distribution Width 22 % (10-15); White Blood Count 9.3 10^3/uL (3.5-10.8)
[2021-10-25 16:53] LABS: INR 1.56 (0.86-1.15)
[2021-10-25 17:05] LABS: Albumin 2.6 g/dL (3.2-5.2); Albumin/Globulin Ratio 0.7 (1-3); Calcium 9.2 mg/dL (8.6-10.3); Globulin 3.8 g/dL (2-4); Potassium 5.1 mmol/L (3.5-5.0); Total Bilirubin 1.1 mg/dL (0.2-1.0); Total Protein 6.4 g/dL (6.4-8.9); eGFR CKD-EPI 65.7 (>60)
[2021-10-26 04:34] LABS: ABS Eosinophils 0.2 10^3/ul (0-0.6); ABS Monocytes 0.8 10^3/ul (0-0.8); Eosinophil % 2.3 %; Hematocrit 29 % (35-47); Hemoglobin 9.4 g/dL (12.0-16.0); Lymphocyte % 11.3 %; Mean Corpuscular HGB Conc 32 g/dL (31-36); Mean Corpuscular Hemoglobin 30 pg (27-31); Mean Corpuscular Volume 92 fL (80-97); Mean Platelet Volume 9.4 fL (7.4-10.4); Nucleated Red Blood Cells % 0.1; Platelet Count 75 10^3/uL (150-450); Red Blood Count 3.15 10^6 /uL (3.70-4.87); Red Cell Distribution Width 22 % (10-15); White Blood Count 9.1 10^3/uL (3.5-10.8)
[2021-10-26 04:46] LABS: ALT 31 U/L (7-52); AST 31 U/L (13-39); Albumin 2.4 g/dL (3.2-5.2); Albumin/Globulin Ratio 0.6 (1-3); Alkaline Phosphatase 88 U/L (35-149); Blood Urea Nitrogen 46 mg/dL (6-24); CO2 Carbon Dioxide 31 mmol/L (22-32); Calcium 9.3 mg/dL (8.6-10.3); Chloride 109 mmol/L (101-111); Globulin 3.7 g/dL (2-4); Glucose 134 mg/dL (70-100); Potassium 4.5 mmol/L (3.5-5.0); Sodium 140 mmol/L (135-145); Total Protein 6.1 g/dL (6.4-8.9); eGFR CKD-EPI 60.9 (>60)
[2021-10-26] MEDS: Heparin 5000 UNITS/ML 1 mL VIAL SUBCUT SCH ×3 (05:33→20:26)
[2021-10-26 09:51] LABS: 6Methylmercaptopurine Riboside 6.63 nmol/mL/h (5.04-9.57)
[2021-10-26] MEDS: Furosemide 20 mg/2 ml IV VIAL IV SLOW PU SCH (10:32)
[2021-10-26] MEDS: Lactulose 30 ml UDC NG TUBE SCH ×3 (10:33→20:25)
[2021-10-26] MEDS: Saline FLUSH-CENTRAL 10 ML SYRINGE CENT\\PICC SCH ×2 (10:36→20:42)
[2021-10-26] MEDS: Insulin GLARGINE 100 un/ml 10 ml VIAL SUBCUT SCH ×2 (10:37→20:26)
[2021-10-26] MEDS: Lansoprazole SUSP ORALSYR 3 MG/ML PO SCH (10:39)
[2021-10-26] MEDS: cefTRIAXone 2 gm/50 mL D5W 2 GM/50 ML BAG IV SCH (14:10)
[2021-10-26] MEDS: Albumin Human 25% 25 GM/100 ML BTL IV SCH (18:00)
[2021-10-27] MEDS: Heparin 5000 UNITS/ML 1 mL VIAL SUBCUT SCH ×3 (04:00→22:55)
[2021-10-27 04:07] LABS: ABS Eosinophils 0.1 10^3/ul (0-0.6); ABS Lymphocytes 0.8 10^3/ul (1.0-4.8); ABS Monocytes 0.6 10^3/ul (0-0.8); ABS Neutrophils 4.9 10^3/ul (1.5-7.7); Eosinophil % 1.6 %; Hematocrit 27 % (35-47); Hemoglobin 8.7 g/dL (12.0-16.0); Lymphocyte % 12.3 %; Mean Corpuscular HGB Conc 32 g/dL (31-36); Mean Corpuscular Hemoglobin 30 pg (27-31); Mean Corpuscular Volume 92 fL (80-97); Mean Platelet Volume 9.7 fL (7.4-10.4); Nucleated Red Blood Cells % 0.1; Platelet Count 73 10^3/uL (150-450); Red Blood Count 2.96 10^6 /uL (3.70-4.87); Red Cell Distribution Width 21 % (10-15); White Blood Count 6.4 10^3/uL (3.5-10.8)
[2021-10-27 04:51] LABS: Calcium 8.9 mg/dL (8.6-10.3); Potassium 4.6 mmol/L (3.5-5.0)
[2021-10-27 04:56] LABS: eGFR CKD-EPI 60.2 (>60)
[2021-10-27] MEDS: Lactulose 30 ml UDC NG TUBE SCH ×3 (09:00→22:55)
[2021-10-27] MEDS: Furosemide 20 mg/2 ml IV VIAL IV SLOW PU SCH (09:09)
[2021-10-27] MEDS: Albumin Human 25% 25 GM/100 ML BTL IV SCH (09:09)
[2021-10-27] MEDS: Saline FLUSH-CENTRAL 10 ML SYRINGE CENT\\PICC SCH ×2 (09:09→23:26)
[2021-10-27] MEDS: Lansoprazole SUSP ORALSYR 3 MG/ML PO SCH (12:52)
[2021-10-27] MEDS: Insulin GLARGINE 100 un/ml 10 ml VIAL SUBCUT SCH ×2 (14:56→23:25)
[2021-10-28 03:36] LABS: ABS Lymphocytes 0.7 10^3/ul (1.0-4.8); ABS Monocytes 0.3 10^3/ul (0-0.8); ABS Neutrophils 4.2 10^3/ul (1.5-7.7); Eosinophil % 0.4 %; Hematocrit 26 % (35-47); Hemoglobin 8.2 g/dL (12.0-16.0); Lymphocyte % 13.3 %; Mean Corpuscular HGB Conc 32 g/dL (31-36); Mean Corpuscular Hemoglobin 30 pg (27-31); Mean Corpuscular Volume 92 fL (80-97); Mean Platelet Volume 9.6 fL (7.4-10.4); Nucleated Red Blood Cells % 0.1; Platelet Count 71 10^3/uL (150-450); Red Blood Count 2.79 10^6 /uL (3.70-4.87); Red Cell Distribution Width 21 % (10-15); White Blood Count 5.3 10^3/uL (3.5-10.8)
[2021-10-28 03:38] LABS: Albumin 2.6 g/dL (3.2-5.2); INR 1.69 (0.86-1.15); Potassium 4.4 mmol/L (3.5-5.0)
[2021-10-28 03:44] LABS: eGFR CKD-EPI 53.1 (>60)
[2021-10-28] MEDS: Heparin 5000 UNITS/ML 1 mL VIAL SUBCUT SCH ×3 (06:30→22:04)
[2021-10-28] MEDS: Albumin Human 25% 25 GM/100 ML BTL IV SCH ×2 (10:42→21:53)
[2021-10-28] MEDS: Saline FLUSH-CENTRAL 10 ML SYRINGE CENT\\PICC SCH ×2 (10:43→22:04)
[2021-10-28] MEDS: Lansoprazole SUSP ORALSYR 3 MG/ML PO SCH (10:43)
[2021-10-28] MEDS: Lactulose 30 ml UDC NG TUBE SCH ×3 (10:43→21:53)
[2021-10-28] MEDS: Furosemide 20 mg/2 ml IV VIAL IV SLOW PU SCH (10:44)
[2021-10-28] MEDS: Insulin GLARGINE 100 un/ml 10 ml VIAL SUBCUT SCH ×2 (11:09→21:50)
[2021-10-28 15:51] LABS: Urine Appearance Clear; Urine Bilirubin Negative (Negative); Urine Blood 2+ (Negative); Urine Color Yellow; Urine Glucose Negative (Negative); Urine Ketones Negative (Negative); Urine Nitrite Negative (Negative); Urine Protein Negative (Negative); Urine Specific Gravity 1.013 (1.002-1.030); Urine Urobilinogen Negative (Negative)
[2021-10-28 16:35] LABS: Urine Bacteria 1+ (Absent); Urine Red Blood Cell 3+(>10/hpf) (Absent); Urine White Blood Cell 2+(11-20/hpf) (Absent)
[2021-10-28] MEDS ORDERED: Furosemide 20 mg/2 ml IV VIAL IV SLOW PU ONE (18:28)
[2021-10-29 05:02] LABS: ABS Monocytes 0.4 10^3/ul (0-0.8); ABS Neutrophils 3.8 10^3/ul (1.5-7.7); Eosinophil % 0.9 %; Hematocrit 25 % (35-47); Hemoglobin 8.1 g/dL (12.0-16.0); Mean Corpuscular HGB Conc 33 g/dL (31-36); Mean Corpuscular Hemoglobin 30 pg (27-31); Mean Corpuscular Volume 92 fL (80-97); Mean Platelet Volume 9.3 fL (7.4-10.4); Nucleated Red Blood Cells % 0.1; Platelet Count 68 10^3/uL (150-450); Red Blood Count 2.72 10^6 /uL (3.70-4.87); Red Cell Distribution Width 20 % (10-15); White Blood Count 5.2 10^3/uL (3.5-10.8)
[2021-10-29 05:15] LABS: Albumin 2.9 g/dL (3.2-5.2); Albumin/Globulin Ratio 1.1 (1-3); Calcium 9.2 mg/dL (8.6-10.3); Globulin 2.6 g/dL (2-4); Potassium 4.3 mmol/L (3.5-5.0); Total Bilirubin 1.2 mg/dL (0.2-1.0); Total Protein 5.5 g/dL (6.4-8.9); eGFR CKD-EPI 54.8 (>60)
[2021-10-29] MEDS: Heparin 5000 UNITS/ML 1 mL VIAL SUBCUT SCH ×3 (06:13→22:19)
[2021-10-29] MEDS: Albumin Human 25% 25 GM/100 ML BTL IV SCH ×2 (11:13→21:59)
[2021-10-29] MEDS: Lansoprazole SUSP ORALSYR 3 MG/ML PO SCH (11:17)
[2021-10-29] MEDS: Furosemide 40 mg/4 ml IV VIAL IV SLOW PU SCH (11:17)
[2021-10-29] MEDS: Insulin GLARGINE 100 un/ml 10 ml VIAL SUBCUT SCH ×2 (11:57→23:59)
[2021-10-29] MEDS: Lactulose 30 ml UDC NG TUBE SCH ×2 (11:58→16:33)
[2021-10-29] MEDS: Saline FLUSH-CENTRAL 10 ML SYRINGE CENT\\PICC SCH ×2 (12:16→22:19)
[2021-10-29 22:56] LABS: Glucose Confirmatory 422 mg/dL (70-100)
[2021-10-30 03:15] LABS: Glucose Confirmatory 439 mg/dL (70-100)
[2021-10-30] MEDS: Heparin 5000 UNITS/ML 1 mL VIAL SUBCUT SCH ×3 (05:49→23:11)
[2021-10-30 06:13] LABS: ABS Eosinophils 0.1 10^3/ul (0-0.6); ABS Lymphocytes 1.1 10^3/ul (1.0-4.8); ABS Monocytes 0.6 10^3/ul (0-0.8); ABS Neutrophils 4.9 10^3/ul (1.5-7.7); Eosinophil % 1.6 %; Hematocrit 27 % (35-47); Hemoglobin 8.6 g/dL (12.0-16.0); Lymphocyte % 16.2 %; Mean Corpuscular HGB Conc 33 g/dL (31-36); Mean Corpuscular Hemoglobin 30 pg (27-31); Mean Corpuscular Volume 91 fL (80-97); Nucleated Red Blood Cells % 0.1; Platelet Count 76 10^3/uL (150-450); Red Blood Count 2.92 10^6 /uL (3.70-4.87); Red Cell Distribution Width 20 % (10-15); White Blood Count 6.7 10^3/uL (3.5-10.8)
[2021-10-30 06:17] LABS: INR 1.71 (0.86-1.15)
[2021-10-30 06:25] LABS: Albumin 3.1 g/dL (3.2-5.2); Albumin/Globulin Ratio 1.1 (1-3); Calcium 9.8 mg/dL (8.6-10.3); Globulin 2.9 g/dL (2-4); Potassium 4.4 mmol/L (3.5-5.0); Total Bilirubin 1.3 mg/dL (0.2-1.0); eGFR CKD-EPI 56.1 (>60)
[2021-10-30] MEDS: Insulin GLARGINE 100 un/ml 10 ml VIAL SUBCUT SCH ×2 (09:00→23:12)
[2021-10-30] MEDS: Furosemide 40 mg/4 ml IV VIAL IV SLOW PU SCH (09:00)
[2021-10-30] MEDS: Saline FLUSH-CENTRAL 10 ML SYRINGE CENT\\PICC SCH ×2 (09:05→23:12)
[2021-10-30] MEDS: Lansoprazole SUSP ORALSYR 3 MG/ML PO SCH (09:12)
[2021-10-30] MEDS: Albumin Human 25% 25 GM/100 ML BTL IV SCH ×2 (09:41→22:28)
[2021-10-30] MEDS ORDERED: Dextrose 50% Syringe 50 ml 25 GM/50 ML SYRINGE IV PUSH PRN ×2 (21:16→22:46)
[2021-10-30] MEDS: Lactulose 30 ml UDC PO SCH (22:40)
[2021-10-31] MEDS: Heparin 5000 UNITS/ML 1 mL VIAL SUBCUT SCH ×3 (04:44→22:18)
[2021-10-31] MEDS ORDERED: fentaNYL 100 mcg/2 ml 50 MCG/ML VIAL ONE (08:46)
[2021-10-31] MEDS: Lansoprazole SUSP ORALSYR 3 MG/ML PO SCH (10:54)
[2021-10-31] MEDS: Lactulose 30 ml UDC PO SCH ×3 (10:54→21:54)
[2021-10-31] MEDS: Insulin GLARGINE 100 un/ml 10 ml VIAL SUBCUT SCH ×2 (10:54→22:18)
[2021-10-31] MEDS: Saline FLUSH-CENTRAL 10 ML SYRINGE CENT\\PICC SCH ×2 (11:02→22:19)
[2021-10-31] MEDS: Albumin Human 25% 25 GM/100 ML BTL IV SCH ×2 (11:03→22:14)
[2021-10-31 12:44] LABS: ABS Eosinophils 0.1 10^3/ul (0-0.6); ABS Lymphocytes 0.9 10^3/ul (1.0-4.8); ABS Monocytes 0.3 10^3/ul (0-0.8); ABS Neutrophils 3.5 10^3/ul (1.5-7.7); Eosinophil % 1.3 %; Hematocrit 25 % (35-47); Hemoglobin 8.2 g/dL (12.0-16.0); Lymphocyte % 19.3 %; Mean Corpuscular HGB Conc 33 g/dL (31-36); Mean Corpuscular Hemoglobin 30 pg (27-31); Mean Corpuscular Volume 91 fL (80-97); Mean Platelet Volume 9.1 fL (7.4-10.4); Nucleated Red Blood Cells % 0.1; Platelet Count 67 10^3/uL (150-450); Red Blood Count 2.79 10^6 /uL (3.70-4.87); Red Cell Distribution Width 20 % (10-15); White Blood Count 4.9 10^3/uL (3.5-10.8)
[2021-10-31 13:11] LABS: Albumin 3.6 g/dL (3.2-5.2); Blood Urea Nitrogen 34 mg/dL (6-24); CO2 Carbon Dioxide 30 mmol/L (22-32); Calcium 9.4 mg/dL (8.6-10.3); Chloride 98 mmol/L (101-111); Glucose 291 mg/dL (70-100); Sodium 128 mmol/L (135-145); eGFR CKD-EPI 59.5 (>60)
[2021-10-31 13:12] LABS: Potassium 5.4 mmol/L (3.5-5.0)
[2021-10-31] MEDS ORDERED: Insulin GLARGINE 100 un/ml 10 ml VIAL SUBCUT ONE (14:30)
[2021-10-31 15:56] LABS: ALT 21 U/L (7-52); AST 19 U/L (13-39)
[2021-11-01] MEDS: Heparin 5000 UNITS/ML 1 mL VIAL SUBCUT SCH ×5 (00:12→18:15)
[2021-11-01 05:15] LABS: ABS Eosinophils 0.1 10^3/ul (0-0.6); ABS Lymphocytes 0.9 10^3/ul (1.0-4.8); ABS Monocytes 0.4 10^3/ul (0-0.8); ABS Neutrophils 3.7 10^3/ul (1.5-7.7); Hematocrit 24 % (35-47); Hemoglobin 7.9 g/dL (12.0-16.0); Lymphocyte % 18.3 %; Mean Corpuscular HGB Conc 33 g/dL (31-36); Mean Corpuscular Hemoglobin 30 pg (27-31); Mean Corpuscular Volume 90 fL (80-97); Mean Platelet Volume 8.7 fL (7.4-10.4); Platelet Count 51 10^3/uL (150-450); Red Blood Count 2.63 10^6 /uL (3.70-4.87); Red Cell Distribution Width 20 % (10-15); White Blood Count 5.2 10^3/uL (3.5-10.8)
[2021-11-01 05:25] LABS: Albumin 3.4 g/dL (3.2-5.2); Albumin/Globulin Ratio 1.6 (1-3); Calcium 9.3 mg/dL (8.6-10.3); Direct Bilirubin 0.3 mg/dL (0.03-0.18); Globulin 2.1 g/dL (2-4); Magnesium 1.8 mg/dL (1.9-2.7); Total Bilirubin 1.3 mg/dL (0.2-1.0); Total Protein 5.5 g/dL (6.4-8.9); eGFR CKD-EPI 64.1 (>60)
[2021-11-01 05:31] LABS: Potassium 5.1 mmol/L (3.5-5.0)
[2021-11-01] MEDS ORDERED: Magnesium Sulfate 2 gm BAG 2 GM/50 ML BAG IVPB ONE (05:56)
[2021-11-01] MEDS: Lactulose 30 ml UDC PO SCH ×2 (10:56→12:20)
[2021-11-01] MEDS: Insulin GLARGINE 100 un/ml 10 ml VIAL SUBCUT SCH ×2 (11:14→21:03)
[2021-11-01] MEDS: Lansoprazole SUSP ORALSYR 3 MG/ML PO SCH (11:18)
[2021-11-01] MEDS: Saline FLUSH-CENTRAL 10 ML SYRINGE CENT\\PICC SCH ×2 (11:18→21:04)
[2021-11-01] MEDS: Albumin Human 25% 25 GM/100 ML BTL IV SCH (13:09)
[2021-11-02] MEDS: Heparin 5000 UNITS/ML 1 mL VIAL SUBCUT SCH ×3 (00:53→17:23)
[2021-11-02 05:56] LABS: ABS Eosinophils 0.1 10^3/ul (0-0.6); ABS Lymphocytes 1.2 10^3/ul (1.0-4.8); ABS Monocytes 0.6 10^3/ul (0-0.8); ABS Neutrophils 7.2 10^3/ul (1.5-7.7); Eosinophil % 0.7 %; Hematocrit 29 % (35-47); Hemoglobin 9.5 g/dL (12.0-16.0); Lymphocyte % 12.7 %; Mean Corpuscular HGB Conc 33 g/dL (31-36); Mean Corpuscular Hemoglobin 29 pg (27-31); Mean Corpuscular Volume 90 fL (80-97); Mean Platelet Volume 9.1 fL (7.4-10.4); Platelet Count 74 10^3/uL (150-450); Red Blood Count 3.21 10^6 /uL (3.70-4.87); Red Cell Distribution Width 19 % (10-15); White Blood Count 9.1 10^3/uL (3.5-10.8)
[2021-11-02 06:23] LABS: Albumin 3.6 g/dL (3.2-5.2); Albumin/Globulin Ratio 1.4 (1-3); Calcium 9.6 mg/dL (8.6-10.3); Globulin 2.5 g/dL (2-4); Potassium 4.3 mmol/L (3.5-5.0); Total Protein 6.1 g/dL (6.4-8.9); eGFR CKD-EPI 65.7 (>60)
[2021-11-02 06:47] LABS: Direct Bilirubin 0.7 mg/dL (0.03-0.18); Indirect Bilirubin 1.3 mg/dL (0.3-1.0)
[2021-11-02] MEDS: Lactulose 30 ml UDC PO SCH ×3 (09:04→17:18)
[2021-11-02] MEDS: Saline FLUSH-CENTRAL 10 ML SYRINGE CENT\\PICC SCH ×2 (09:07→20:35)
[2021-11-02] MEDS: Insulin GLARGINE 100 un/ml 10 ml VIAL SUBCUT SCH (09:08)
[2021-11-02] MEDS: Lansoprazole SUSP ORALSYR 3 MG/ML PO SCH (09:21)
[2021-11-02] MEDS: Zinc Oxide 16% PASTE (Butt Paste) 30 gm TUBE TOPICAL SCH (20:33)
[2021-11-02] MEDS: Albumin Human 25% 25 GM/100 ML BTL IV SCH (20:33)
[2021-11-02] MEDS ORDERED: Insulin GLARGINE 100 un/ml 10 ml VIAL SUBCUT SCH ×3 (21:00)
[2021-11-03 06:09] LABS: ABS Lymphocytes 0.9 10^3/ul (1.0-4.8); ABS Monocytes 0.6 10^3/ul (0-0.8); ABS Neutrophils 6.6 10^3/ul (1.5-7.7); Eosinophil % 0.3 %; Hematocrit 27 % (35-47); Hemoglobin 8.8 g/dL (12.0-16.0); Lymphocyte % 10.8 %; Mean Corpuscular HGB Conc 33 g/dL (31-36); Mean Corpuscular Hemoglobin 29 pg (27-31); Mean Corpuscular Volume 90 fL (80-97); Mean Platelet Volume 10.3 fL (7.4-10.4); Platelet Count 73 10^3/uL (150-450); Red Blood Count 3.02 10^6 /uL (3.70-4.87); Red Cell Distribution Width 19 % (10-15); White Blood Count 8.1 10^3/uL (3.5-10.8)
[2021-11-03 06:56] LABS: Albumin 3.8 g/dL (3.2-5.2); Albumin/Globulin Ratio 1.5 (1-3); Calcium 9.6 mg/dL (8.6-10.3); Direct Bilirubin 0.7 mg/dL (0.03-0.18); Globulin 2.5 g/dL (2-4); Indirect Bilirubin 1.3 mg/dL (0.3-1.0); Potassium 4.7 mmol/L (3.5-5.0); Total Protein 6.3 g/dL (6.4-8.9)
[2021-11-03] MEDS: Heparin 5000 UNITS/ML 1 mL VIAL SUBCUT SCH ×3 (08:38→17:51)
[2021-11-03] MEDS: Lactulose 30 ml UDC PO SCH ×3 (08:40→17:51)
[2021-11-03] MEDS: Albumin Human 25% 25 GM/100 ML BTL IV SCH ×2 (08:41→21:53)
[2021-11-03] MEDS: Saline FLUSH-CENTRAL 10 ML SYRINGE CENT\\PICC SCH ×2 (08:41→20:45)
[2021-11-03] MEDS: Zinc Oxide 16% PASTE (Butt Paste) 30 gm TUBE TOPICAL SCH ×2 (08:43→20:51)
[2021-11-03] MEDS: Lansoprazole SUSP ORALSYR 3 MG/ML PO SCH (08:44)
[2021-11-03] MEDS ORDERED: Insulin GLARGINE 100 un/ml 10 ml VIAL SUBCUT SCH ×3 (09:00)
[2021-11-03 16:10] LABS: Anti-EJ Ab Negative (Negative); Anti-Ku Ab Negative (Negative); Anti-MDA-5 Ab (CADM-140) <20 Units (<20); Anti-MI-2-Ab Negative (Negative); Anti-OJ Ab Negative (Negative); Anti-PL-12 Ab Negative (Negative); Anti-PL-7 Ab Negative (Negative); Anti-SAE1 Ab, IgG <20 Units (<20); Anti-SRP Ab Negative (Negative); Anti-TIF 1gamma Ab <20 Units (<20); Anti-U2 RNP Ab Negative (Negative); Anti-U3 RNP (Fibrillarin) Negative (Negative)
[2021-11-03 17:18] LABS: Calcium 9.4 mg/dL (8.6-10.3); eGFR CKD-EPI 26.2 (>60)
[2021-11-03 17:21] LABS: Potassium 5.1 mmol/L (3.5-5.0)
[2021-11-03] MEDS: Insulin GLARGINE 100 un/ml 10 ml VIAL SUBCUT SCH (20:49)
[2021-11-04] MEDS: Heparin 5000 UNITS/ML 1 mL VIAL SUBCUT SCH ×3 (00:06→17:08)
[2021-11-04 05:16] LABS: Hematocrit 25 % (35-47); Hemoglobin 7.9 g/dL (12.0-16.0); Mean Corpuscular HGB Conc 32 g/dL (31-36); Mean Corpuscular Hemoglobin 29 pg (27-31); Mean Corpuscular Volume 91 fL (80-97); Mean Platelet Volume 10.1 fL (7.4-10.4); Platelet Count 65 10^3/uL (150-450); Red Blood Count 2.71 10^6 /uL (3.70-4.87); Red Cell Distribution Width 20 % (10-15); White Blood Count 7.8 10^3/uL (3.5-10.8)
[2021-11-04 05:45] LABS: Albumin/Globulin Ratio 1.7 (1-3); Calcium 9.4 mg/dL (8.6-10.3); Direct Bilirubin 0.7 mg/dL (0.03-0.18); Globulin 2.3 g/dL (2-4); Indirect Bilirubin 1.5 mg/dL (0.3-1.0); Potassium 4.5 mmol/L (3.5-5.0); Total Bilirubin 2.2 mg/dL (0.2-1.0); Total Protein 6.3 g/dL (6.4-8.9); eGFR CKD-EPI 22.7 (>60)
[2021-11-04] MEDS: Zinc Oxide 16% PASTE (Butt Paste) 30 gm TUBE TOPICAL SCH ×2 (09:32→21:33)
[2021-11-04] MEDS: Insulin GLARGINE 100 un/ml 10 ml VIAL SUBCUT SCH ×2 (09:34→21:35)
[2021-11-04] MEDS: Albumin Human 25% 25 GM/100 ML BTL IV SCH ×2 (09:34→21:35)
[2021-11-04] MEDS: Saline FLUSH-CENTRAL 10 ML SYRINGE CENT\\PICC SCH ×2 (09:35→21:54)
[2021-11-04] MEDS: Lansoprazole SUSP ORALSYR 3 MG/ML PO SCH (11:24)
[2021-11-04] MEDS ORDERED: Furosemide 40 mg/4 ml IV VIAL IV SLOW PU ONE (12:37)
[2021-11-04 19:04] LABS: Calcium 9.5 mg/dL (8.6-10.3); eGFR CKD-EPI 18.7 (>60)
[2021-11-04 19:09] LABS: Potassium 5.1 mmol/L (3.5-5.0)
[2021-11-05] MEDS: Heparin 5000 UNITS/ML 1 mL VIAL SUBCUT SCH ×2 (00:33→07:14)
[2021-11-05 05:43] LABS: ABS Lymphocytes 1.1 10^3/ul (1.0-4.8); ABS Monocytes 0.5 10^3/ul (0-0.8); ABS Neutrophils 4.7 10^3/ul (1.5-7.7); Eosinophil % 0.2 %; Hematocrit 21 % (35-47); Hemoglobin 6.8 g/dL (12.0-16.0); Lymphocyte % 17.3 %; Mean Corpuscular HGB Conc 32 g/dL (31-36); Mean Corpuscular Hemoglobin 30 pg (27-31); Mean Corpuscular Volume 91 fL (80-97); Mean Platelet Volume 8.9 fL (7.4-10.4); Nucleated Red Blood Cells % 0.1; Platelet Count 46 10^3/uL (150-450); Red Blood Count 2.31 10^6 /uL (3.70-4.87); Red Cell Distribution Width 19 % (10-15); White Blood Count 6.3 10^3/uL (3.5-10.8)
[2021-11-05 05:48] LABS: INR 1.97 (0.86-1.15)
[2021-11-05 06:14] LABS: Albumin 3.6 g/dL (3.2-5.2); Albumin/Globulin Ratio 1.9 (1-3); Globulin 1.9 g/dL (2-4); Potassium 4.2 mmol/L (3.5-5.0); Total Bilirubin 1.6 mg/dL (0.2-1.0); Total Protein 5.5 g/dL (6.4-8.9); eGFR CKD-EPI 28.1 (>60)
[2021-11-05] MEDS: Albumin Human 25% 25 GM/100 ML BTL IV SCH ×2 (08:15→21:07)
[2021-11-05] MEDS: Insulin GLARGINE 100 un/ml 10 ml VIAL SUBCUT SCH ×2 (08:20→21:25)
[2021-11-05] MEDS: Lansoprazole SUSP ORALSYR 3 MG/ML PO SCH (08:20)
[2021-11-05] MEDS: Zinc Oxide 16% PASTE (Butt Paste) 30 gm TUBE TOPICAL SCH ×2 (08:24→21:26)
[2021-11-05] MEDS: Saline FLUSH-CENTRAL 10 ML SYRINGE CENT\\PICC SCH ×2 (08:24→21:13)
[2021-11-05] MEDS ORDERED: Furosemide 40 mg/4 ml IV VIAL IV SLOW PU SCH (09:00)
[2021-11-05 17:12] LABS: Glucose Confirmatory 420 mg/dL (70-100)
[2021-11-05] MEDS ORDERED: Dextrose 50% Syringe 50 ml 25 GM/50 ML SYRINGE IV PUSH PRN (21:07)
[2021-11-06 05:21] LABS: ABS Eosinophils 0.1 10^3/ul (0-0.6); ABS Lymphocytes 1.4 10^3/ul (1.0-4.8); ABS Monocytes 0.5 10^3/ul (0-0.8); ABS Neutrophils 3.5 10^3/ul (1.5-7.7); Eosinophil % 1.3 %; Hematocrit 25 % (35-47); Hemoglobin 8.1 g/dL (12.0-16.0); Lymphocyte % 25.9 %; Mean Corpuscular HGB Conc 33 g/dL (31-36); Mean Corpuscular Hemoglobin 29 pg (27-31); Mean Corpuscular Volume 90 fL (80-97); Mean Platelet Volume 8.3 fL (7.4-10.4); Platelet Count 48 10^3/uL (150-450); Red Blood Count 2.75 10^6 /uL (3.70-4.87); Red Cell Distribution Width 18 % (10-15); White Blood Count 5.5 10^3/uL (3.5-10.8)
[2021-11-06 05:24] LABS: INR 1.9 (0.86-1.15)
[2021-11-06 05:58] LABS: Albumin 3.7 g/dL (3.2-5.2); Albumin/Globulin Ratio 2.1 (1-3); Calcium 8.9 mg/dL (8.6-10.3); Globulin 1.8 g/dL (2-4); Potassium 4.1 mmol/L (3.5-5.0); Total Protein 5.5 g/dL (6.4-8.9); eGFR CKD-EPI 49.8 (>60)
[2021-11-06] MEDS: Albumin Human 25% 25 GM/100 ML BTL IV SCH (09:24)
[2021-11-06] MEDS: Lansoprazole SUSP ORALSYR 3 MG/ML PO SCH (09:25)
[2021-11-06] MEDS: Insulin GLARGINE 100 un/ml 10 ml VIAL SUBCUT SCH ×2 (09:25→20:52)
[2021-11-06] MEDS: Zinc Oxide 16% PASTE (Butt Paste) 30 gm TUBE TOPICAL SCH ×2 (10:15→20:54)
[2021-11-06] MEDS: Saline FLUSH-CENTRAL 10 ML SYRINGE CENT\\PICC SCH ×2 (11:40→20:54)
[2021-11-07 06:24] LABS: INR 1.84 (0.86-1.15)
[2021-11-07 06:39] LABS: Albumin 3.7 g/dL (3.2-5.2); Calcium 9.2 mg/dL (8.6-10.3); Potassium 4.2 mmol/L (3.5-5.0); Total Bilirubin 1.7 mg/dL (0.2-1.0)
[2021-11-07 06:45] LABS: Albumin/Globulin Ratio 1.8 (1-3); Globulin 2.1 g/dL (2-4); Total Protein 5.8 g/dL (6.4-8.9); eGFR CKD-EPI 62.5 (>60)
[2021-11-07 06:58] LABS: ABS Lymphocytes 1.4 10^3/ul (1.0-4.8); ABS Monocytes 0.4 10^3/ul (0-0.8); ABS Neutrophils 3.6 10^3/ul (1.5-7.7); Eosinophil % 0.9 %; Hematocrit 26 % (35-47); Hemoglobin 8.7 g/dL (12.0-16.0); Lymphocyte % 25.4 %; Mean Corpuscular HGB Conc 33 g/dL (31-36); Mean Corpuscular Hemoglobin 30 pg (27-31); Mean Corpuscular Volume 90 fL (80-97); Mean Platelet Volume 8.5 fL (7.4-10.4); Platelet Count 56 10^3/uL (150-450); Red Blood Count 2.93 10^6 /uL (3.70-4.87); Red Cell Distribution Width 18 % (10-15); White Blood Count 5.4 10^3/uL (3.5-10.8)
[2021-11-07] MEDS: Insulin GLARGINE 100 un/ml 10 ml VIAL SUBCUT SCH ×2 (08:49→20:55)
[2021-11-07] MEDS: Lansoprazole SUSP ORALSYR 3 MG/ML PO SCH (09:09)
[2021-11-07] MEDS: Saline FLUSH-CENTRAL 10 ML SYRINGE CENT\\PICC SCH ×2 (09:24→20:56)
[2021-11-07] MEDS: Zinc Oxide 16% PASTE (Butt Paste) 30 gm TUBE TOPICAL SCH ×2 (10:39→20:56)
[2021-11-07 20:10] LABS: Glucose Confirmatory 437 mg/dL (70-100)
[2021-11-08 05:32] LABS: ABS Eosinophils 0.1 10^3/ul (0-0.6); ABS Monocytes 0.3 10^3/ul (0-0.8); Eosinophil % 1.4 %; Hematocrit 25 % (35-47); Hemoglobin 8.4 g/dL (12.0-16.0); Mean Corpuscular HGB Conc 33 g/dL (31-36); Mean Corpuscular Hemoglobin 30 pg (27-31); Mean Corpuscular Volume 90 fL (80-97); Mean Platelet Volume 8.4 fL (7.4-10.4); Platelet Count 54 10^3/uL (150-450); Red Blood Count 2.83 10^6 /uL (3.70-4.87); Red Cell Distribution Width 18 % (10-15); White Blood Count 4.4 10^3/uL (3.5-10.8)
[2021-11-08 05:34] LABS: INR 1.8 (0.86-1.15)
[2021-11-08 06:05] LABS: Albumin 3.5 g/dL (3.2-5.2); Albumin/Globulin Ratio 1.6 (1-3); Calcium 8.6 mg/dL (8.6-10.3); Globulin 2.2 g/dL (2-4); Magnesium 1.6 mg/dL (1.9-2.7); Potassium 4.6 mmol/L (3.5-5.0); Total Bilirubin 1.3 mg/dL (0.2-1.0); Total Protein 5.7 g/dL (6.4-8.9); eGFR CKD-EPI 57.4 (>60)
[2021-11-08] MEDS: Insulin GLARGINE 100 un/ml 10 ml VIAL SUBCUT SCH ×2 (08:18→21:22)
[2021-11-08] MEDS ORDERED: Magnesium Sulfate 2 gm BAG 2 GM/50 ML BAG IVPB ONE (08:21)
[2021-11-08] MEDS: Saline FLUSH-CENTRAL 10 ML SYRINGE CENT\\PICC SCH ×2 (10:08→21:23)
[2021-11-08] MEDS: Lansoprazole SUSP ORALSYR 3 MG/ML PO SCH (10:20)
[2021-11-08] MEDS: Zinc Oxide 16% PASTE (Butt Paste) 30 gm TUBE TOPICAL SCH ×2 (10:24→21:22)
[2021-11-09 05:38] LABS: INR 1.77 (0.86-1.15)
[2021-11-09 05:39] LABS: ABS Basophils 0.1 10^3/ul (0-0.2); ABS Eosinophils 0.1 10^3/ul (0-0.6); ABS Lymphocytes 1.7 10^3/ul (1.0-4.8); ABS Monocytes 0.5 10^3/ul (0-0.8); ABS Neutrophils 3.2 10^3/ul (1.5-7.7); Eosinophil % 2.7 %; Hematocrit 27 % (35-47); Hemoglobin 9.2 g/dL (12.0-16.0); Lymphocyte % 30.4 %; Mean Corpuscular HGB Conc 34 g/dL (31-36); Mean Corpuscular Hemoglobin 31 pg (27-31); Mean Corpuscular Volume 90 fL (80-97); Mean Platelet Volume 7.7 fL (7.4-10.4); Nucleated Red Blood Cells % 0.1; Platelet Count 70 10^3/uL (150-450); Red Blood Count 3.02 10^6 /uL (3.70-4.87); Red Cell Distribution Width 18 % (10-15); White Blood Count 5.5 10^3/uL (3.5-10.8)
[2021-11-09 05:59] LABS: Albumin 3.5 g/dL (3.2-5.2); Albumin/Globulin Ratio 1.4 (1-3); Calcium 8.9 mg/dL (8.6-10.3); Globulin 2.5 g/dL (2-4); Potassium 4.5 mmol/L (3.5-5.0); Total Bilirubin 1.4 mg/dL (0.2-1.0); eGFR CKD-EPI 54.2 (>60)
[2021-11-09] MEDS ORDERED: Insulin GLARGINE 100 un/ml 10 ml VIAL SUBCUT SCH (09:00)
[2021-11-09] MEDS: Zinc Oxide 16% PASTE (Butt Paste) 30 gm TUBE TOPICAL SCH ×2 (09:18→21:17)
[2021-11-09] MEDS: Saline FLUSH-CENTRAL 10 ML SYRINGE CENT\\PICC SCH ×2 (09:22→21:17)
[2021-11-09] MEDS: Lansoprazole SUSP ORALSYR 3 MG/ML PO SCH (09:23)
[2021-11-10 06:49] LABS: ABS Eosinophils 0.1 10^3/ul (0-0.6); ABS Lymphocytes 1.1 10^3/ul (1.0-4.8); ABS Monocytes 0.6 10^3/ul (0-0.8); ABS Neutrophils 6.3 10^3/ul (1.5-7.7); Eosinophil % 1.1 %; Hematocrit 31 % (35-47); Hemoglobin 10.1 g/dL (12.0-16.0); Lymphocyte % 13.9 %; Mean Corpuscular HGB Conc 33 g/dL (31-36); Mean Corpuscular Hemoglobin 30 pg (27-31); Mean Corpuscular Volume 91 fL (80-97); Mean Platelet Volume 7.7 fL (7.4-10.4); Platelet Count 92 10^3/uL (150-450); Red Blood Count 3.41 10^6 /uL (3.70-4.87); Red Cell Distribution Width 18 % (10-15); White Blood Count 8.2 10^3/uL (3.5-10.8)
[2021-11-10 06:53] LABS: INR 1.67 (0.86-1.15)
[2021-11-10 07:01] LABS: Albumin 3.9 g/dL (3.2-5.2); Albumin/Globulin Ratio 1.4 (1-3); Calcium 9.3 mg/dL (8.6-10.3); Globulin 2.8 g/dL (2-4); Magnesium 1.6 mg/dL (1.9-2.7); Potassium 4.8 mmol/L (3.5-5.0); Total Bilirubin 1.5 mg/dL (0.2-1.0); Total Protein 6.7 g/dL (6.4-8.9); eGFR CKD-EPI 45.1 (>60)
[2021-11-10] MEDS ORDERED: Magnesium Sulfate 2 gm BAG 2 GM/50 ML BAG IVPB ONE (07:55)
[2021-11-10] MEDS: Insulin GLARGINE 100 un/ml 10 ml VIAL SUBCUT SCH (09:17)
[2021-11-10] MEDS: Zinc Oxide 16% PASTE (Butt Paste) 30 gm TUBE TOPICAL SCH ×2 (09:20→20:41)
[2021-11-10] MEDS: Saline FLUSH-CENTRAL 10 ML SYRINGE CENT\\PICC SCH ×2 (09:21→20:41)
[2021-11-10] MEDS: Lansoprazole SUSP ORALSYR 3 MG/ML PO SCH (09:25)
[2021-11-11 06:07] LABS: ABS Eosinophils 0.1 10^3/ul (0-0.6); ABS Lymphocytes 1.1 10^3/ul (1.0-4.8); ABS Monocytes 0.8 10^3/ul (0-0.8); ABS Neutrophils 7.3 10^3/ul (1.5-7.7); Eosinophil % 0.6 %; Hematocrit 31 % (35-47); Lymphocyte % 12.1 %; Mean Corpuscular HGB Conc 33 g/dL (31-36); Mean Corpuscular Hemoglobin 30 pg (27-31); Mean Corpuscular Volume 90 fL (80-97); Mean Platelet Volume 8.1 fL (7.4-10.4); Platelet Count 96 10^3/uL (150-450); Red Blood Count 3.41 10^6 /uL (3.70-4.87); Red Cell Distribution Width 18 % (10-15); White Blood Count 9.3 10^3/uL (3.5-10.8)
[2021-11-11 06:13] LABS: INR 1.74 (0.86-1.15)
[2021-11-11 06:42] LABS: Albumin 3.7 g/dL (3.2-5.2); Albumin/Globulin Ratio 1.2 (1-3); Calcium 9.4 mg/dL (8.6-10.3); Magnesium 2.1 mg/dL (1.9-2.7); Total Bilirubin 1.9 mg/dL (0.2-1.0); Total Protein 6.7 g/dL (6.4-8.9); eGFR CKD-EPI 34.4 (>60)
[2021-11-11 06:43] LABS: Potassium 5.1 mmol/L (3.5-5.0)
[2021-11-11] MEDS: Insulin GLARGINE 100 un/ml 10 ml VIAL SUBCUT SCH (09:00)
[2021-11-11] MEDS: Lansoprazole SUSP ORALSYR 3 MG/ML PO SCH (09:03)
[2021-11-11] MEDS: Saline FLUSH-CENTRAL 10 ML SYRINGE CENT\\PICC SCH ×2 (09:03→23:05)
[2021-11-11] MEDS: Zinc Oxide 16% PASTE (Butt Paste) 30 gm TUBE TOPICAL SCH ×2 (09:04→23:05)
[2021-11-12 05:27] LABS: ABS Lymphocytes 0.9 10^3/ul (1.0-4.8); ABS Monocytes 0.9 10^3/ul (0-0.8); ABS Neutrophils 8.3 10^3/ul (1.5-7.7); Eosinophil % 0.5 %; Hematocrit 28 % (35-47); Hemoglobin 9.6 g/dL (12.0-16.0); Lymphocyte % 8.6 %; Mean Corpuscular HGB Conc 34 g/dL (31-36); Mean Corpuscular Hemoglobin 30 pg (27-31); Mean Corpuscular Volume 89 fL (80-97); Mean Platelet Volume 8.6 fL (7.4-10.4); Platelet Count 112 10^3/uL (150-450); Red Blood Count 3.17 10^6 /uL (3.70-4.87); Red Cell Distribution Width 18 % (10-15); White Blood Count 10.2 10^3/uL (3.5-10.8)
[2021-11-12 06:19] LABS: Albumin 3.4 g/dL (3.2-5.2); Albumin/Globulin Ratio 1.2 (1-3); Calcium 9.1 mg/dL (8.6-10.3); Globulin 2.9 g/dL (2-4); Magnesium 2.3 mg/dL (1.9-2.7); Total Bilirubin 1.7 mg/dL (0.2-1.0); Total Protein 6.3 g/dL (6.4-8.9); eGFR CKD-EPI 15.1 (>60)
[2021-11-12 06:21] LABS: Potassium 5.8 mmol/L (3.5-5.0)
[2021-11-12] MEDS: Insulin GLARGINE 100 un/ml 10 ml VIAL SUBCUT SCH (09:29)
[2021-11-12] MEDS ORDERED: SODIUM ZIRCONIUM CYCLOSILICATE 10 GM PACKET PO ONE (10:30)
[2021-11-12] MEDS ORDERED: Albumin Human 25% 25 GM/100 ML BTL IV ONE (10:30)
[2021-11-12] MEDS: Zinc Oxide 16% PASTE (Butt Paste) 30 gm TUBE TOPICAL SCH ×2 (11:45→21:14)
[2021-11-12] MEDS: Albumin Human 25% 25 GM/100 ML BTL IV SCH ×2 (11:58→21:13)
[2021-11-12] MEDS: Saline FLUSH-CENTRAL 10 ML SYRINGE CENT\\PICC SCH ×2 (12:09→21:14)
[2021-11-12] MEDS: Lansoprazole SUSP ORALSYR 3 MG/ML PO SCH (13:23)
[2021-11-12 17:49] LABS: Calcium 9.5 mg/dL (8.6-10.3); Potassium 4.9 mmol/L (3.5-5.0); eGFR CKD-EPI 15.6 (>60)
[2021-11-12] MEDS ORDERED: NS 0.9% 500 ml BAG 500 ML IV ONE (18:00)
[2021-11-13 06:51] LABS: ABS Lymphocytes 0.9 10^3/ul (1.0-4.8); ABS Monocytes 0.8 10^3/ul (0-0.8); Eosinophil % 0.6 %; Hematocrit 24 % (35-47); Lymphocyte % 11.9 %; Mean Corpuscular HGB Conc 33 g/dL (31-36); Mean Corpuscular Hemoglobin 30 pg (27-31); Mean Corpuscular Volume 90 fL (80-97); Mean Platelet Volume 8.8 fL (7.4-10.4); Platelet Count 95 10^3/uL (150-450); Red Cell Distribution Width 17 % (10-15); White Blood Count 7.8 10^3/uL (3.5-10.8)
[2021-11-13 06:55] LABS: INR 1.76 (0.86-1.15)
[2021-11-13 07:29] LABS: Albumin 3.7 g/dL (3.2-5.2); Albumin/Globulin Ratio 1.5 (1-3); Calcium 8.9 mg/dL (8.6-10.3); Globulin 2.4 g/dL (2-4); Total Bilirubin 1.6 mg/dL (0.2-1.0); Total Protein 6.1 g/dL (6.4-8.9); eGFR CKD-EPI 10.8 (>60)
[2021-11-13 07:43] LABS: Potassium 5.3 mmol/L (3.5-5.0)
[2021-11-13] MEDS: Albumin Human 25% 25 GM/100 ML BTL IV SCH ×2 (10:57→21:27)
[2021-11-13] MEDS: Lansoprazole SUSP ORALSYR 3 MG/ML PO SCH (10:57)
[2021-11-13 10:58] LABS: Urine Appearance Turbid; Urine Bilirubin Negative (Negative); Urine Blood 2+ (Negative); Urine Color Amber; Urine Glucose Negative (Negative); Urine Ketones Negative (Negative); Urine Nitrite Negative (Negative); Urine Protein 1+(30 mg/dL) (Negative); Urine Specific Gravity 1.008 (1.002-1.030); Urine Urobilinogen Negative (Negative)
[2021-11-13] MEDS: Saline FLUSH-CENTRAL 10 ML SYRINGE CENT\\PICC SCH ×2 (11:00→21:29)
[2021-11-13] MEDS: Zinc Oxide 16% PASTE (Butt Paste) 30 gm TUBE TOPICAL SCH ×2 (11:00→21:30)
[2021-11-13 11:06] LABS: Urine Bacteria Absent (Absent); Urine Red Blood Cell Trace(0-2/hpf) (Absent); Urine White Blood Cell 3+(>20/hpf) (Absent)
[2021-11-13] MEDS: Insulin GLARGINE 100 un/ml 10 ml VIAL SUBCUT SCH (11:47)
[2021-11-14 05:12] LABS: Hematocrit 22 % (35-47); Hemoglobin 7.3 g/dL (12.0-16.0); Mean Corpuscular HGB Conc 33 g/dL (31-36); Mean Corpuscular Hemoglobin 30 pg (27-31); Mean Corpuscular Volume 90 fL (80-97); Mean Platelet Volume 8.4 fL (7.4-10.4); Platelet Count 84 10^3/uL (150-450); Red Blood Count 2.46 10^6 /uL (3.70-4.87); Red Cell Distribution Width 17 % (10-15); White Blood Count 3.3 10^3/uL (3.5-10.8)
[2021-11-14 05:45] LABS: Calcium 8.8 mg/dL (8.6-10.3); Potassium 4.9 mmol/L (3.5-5.0); eGFR CKD-EPI 26.2 (>60)
[2021-11-14] MEDS: Insulin GLARGINE 100 un/ml 10 ml VIAL SUBCUT SCH (07:39)
[2021-11-14] MEDS: Albumin Human 25% 25 GM/100 ML BTL IV SCH ×2 (08:12→20:30)
[2021-11-14] MEDS: Zinc Oxide 16% PASTE (Butt Paste) 30 gm TUBE TOPICAL SCH ×2 (09:48→20:15)
[2021-11-14] MEDS: Saline FLUSH-CENTRAL 10 ML SYRINGE CENT\\PICC SCH ×2 (09:49→20:30)
[2021-11-14] MEDS: Lansoprazole SUSP ORALSYR 3 MG/ML PO SCH (09:50)
[2021-11-14] MEDS: Lactulose 30 ml UDC PO SCH ×2 (14:02→20:27)
[2021-11-14] MEDS ORDERED: NS 0.9% 500 ml BAG 500 ML IV ONE (16:46)
[2021-11-14] MEDS ORDERED: cefTRIAXone 1 gm/50 mL D5W 1 GM/50 ML BAG IV SCH (17:00)
[2021-11-15 05:06] LABS: ABS Lymphocytes 0.8 10^3/ul (1.0-4.8); ABS Monocytes 0.3 10^3/ul (0-0.8); ABS Neutrophils 2.2 10^3/ul (1.5-7.7); Eosinophil % 1.1 %; Hematocrit 22 % (35-47); Lymphocyte % 23.8 %; Mean Corpuscular HGB Conc 32 g/dL (31-36); Mean Corpuscular Hemoglobin 29 pg (27-31); Mean Corpuscular Volume 91 fL (80-97); Mean Platelet Volume 8.5 fL (7.4-10.4); Platelet Count 95 10^3/uL (150-450); Red Blood Count 2.38 10^6 /uL (3.70-4.87); Red Cell Distribution Width 18 % (10-15); White Blood Count 3.4 10^3/uL (3.5-10.8)
[2021-11-15 05:37] LABS: Calcium 8.6 mg/dL (8.6-10.3); Potassium 4.8 mmol/L (3.5-5.0); eGFR CKD-EPI 54.8 (>60)
[2021-11-15] MEDS: Insulin GLARGINE 100 un/ml 10 ml VIAL SUBCUT SCH (08:08)
[2021-11-15] MEDS: Lansoprazole SUSP ORALSYR 3 MG/ML PO SCH (08:30)
[2021-11-15] MEDS: Lactulose 30 ml UDC PO SCH ×4 (08:31→20:43)
[2021-11-15] MEDS: Albumin Human 25% 25 GM/100 ML BTL IV SCH ×2 (08:34→20:37)
[2021-11-15] MEDS: Saline FLUSH-CENTRAL 10 ML SYRINGE CENT\\PICC SCH ×2 (09:44→20:39)
[2021-11-15] MEDS: Cefepime 1 GM in Dextrose 1 GM/50 ML BAG IV SCH ×2 (09:44→22:12)
[2021-11-15] MEDS: Zinc Oxide 16% PASTE (Butt Paste) 30 gm TUBE TOPICAL SCH ×2 (09:45→20:39)
[2021-11-15 10:07] LABS: Hematocrit 22 % (35-47); Hemoglobin 7.1 g/dL (12.0-16.0)
[2021-11-15 11:57] LABS: Folate 9.92 ng/mL (5.90-24.80)
[2021-11-15 17:59] LABS: Rapid COVID-19 Molecular Undetected (Undetected)
[2021-11-16 05:18] LABS: ABS Eosinophils 0.1 10^3/ul (0-0.6); ABS Monocytes 0.4 10^3/ul (0-0.8); ABS Neutrophils 2.7 10^3/ul (1.5-7.7); Albumin 3.8 g/dL (3.2-5.2); Albumin/Globulin Ratio 1.8 (1-3); Calcium 8.9 mg/dL (8.6-10.3); Eosinophil % 1.2 %; Globulin 2.1 g/dL (2-4); Hematocrit 23 % (35-47); Hemoglobin 7.4 g/dL (12.0-16.0); Lymphocyte % 24.4 %; Mean Corpuscular HGB Conc 33 g/dL (31-36); Mean Corpuscular Hemoglobin 29 pg (27-31); Mean Corpuscular Volume 90 fL (80-97); Mean Platelet Volume 7.4 fL (7.4-10.4); Platelet Count 98 10^3/uL (150-450); Potassium 4.9 mmol/L (3.5-5.0); Red Cell Distribution Width 18 % (10-15); Total Bilirubin 0.9 mg/dL (0.2-1.0); Total Protein 5.9 g/dL (6.4-8.9); White Blood Count 4.2 10^3/uL (3.5-10.8); eGFR CKD-EPI 65.7 (>60)
[2021-11-16] MEDS: Cefepime 1 GM in Dextrose 1 GM/50 ML BAG IV SCH (10:15)
[2021-11-16] MEDS: Zinc Oxide 16% PASTE (Butt Paste) 30 gm TUBE TOPICAL SCH (10:16)
[2021-11-16] MEDS: Saline FLUSH-CENTRAL 10 ML SYRINGE CENT\\PICC SCH (10:19)
[2021-11-16] MEDS: Lactulose 30 ml UDC PO SCH (10:20)
[2021-11-16] MEDS: Insulin GLARGINE 100 un/ml 10 ml VIAL SUBCUT SCH (10:21)
[2021-11-16] MEDS: Lansoprazole SUSP ORALSYR 3 MG/ML PO SCH (10:28)
[2021-11-16 11:20] VITALS: BP 95/47
== END 2021-11-16 11:48 | DRG 420 ==
LOC: EDBD → MERGE 12:06 → ED 12:06 → SUATTDRO 14:17 → EDHOLD 14:17 → ICU 16:30 → MEDTELE 10-22 02:51
PROVIDERS: ADMIT Student in an Organized Health Care Education/Training Program; ATTEND Internal Medicine